=== PATIENT | female | born 1940 | race Caucasian/White ===

== ENCOUNTER 2016-12-01 15:47 | Emergency (ER) | payer MEDICARE, OTHER ==
[2016-12-01 16:44] LABS: HEMATOCRIT 34.2 % (36.0-47.0); HEMOGLOBIN 11.4 g/dL (12.0-15.5); MEAN CORPUSCULAR HEMOGLOBIN 28.8 pg (27.0-33.4); MEAN CORPUSCULAR HGB CONC 33.2 g/dL (32.0-36.0); MEAN CORPUSCULAR VOLUME 87 fl (80-97); RED BLOOD COUNT 3.95 10^6/uL (3.72-5.28); RED CELL DISTRIBUTION WIDTH 16.8 % (11.5-14.0)
[2016-12-01 16:52] LABS: ALANINE AMINOTRANSFERASE 35 U/L (9-52); ALBUMIN 3.9 g/dL (3.5-5.0); ALKALINE PHOSPHATASE 95 U/L (38-126); ANION GAP 11 (5-19); ASPARTATE AMINO TRANSFERASE 30 U/L (14-36); BILIRUBIN,TOTAL 0.5 mg/dL (0.2-1.3); BLOOD UREA NITROGEN 24 mg/dL (7-20); CALCIUM 9.7 mg/dL (8.4-10.2); CARBON DIOXIDE 27 mmol/L (22-30); CHLORIDE 104 mmol/L (98-107); CREATINE KINASE 67 U/L (30-135); CREATININE RESULT 0.94 mg/dL (0.52-1.25); GLUCOSE 136 mg/dL (75-110); LIPASE 82.4 U/L (23-300); POTASSIUM 3.3 mmol/L (3.6-5.0); SODIUM 141.6 mmol/L (137-145); TOTAL PROTEIN 6.2 g/dL (6.3-8.2)
[2016-12-01] MEDS ORDERED: MAG HYDROX/AL HYDROX/SIMETH SUSP 30 ML UDCUP PO ONE (17:02)
[2016-12-01] MEDS ORDERED: LIDOCAINE 2% VISCOUS SOLN 20 ML UDCUP PO ONE (17:02)
[2016-12-01] MEDS ORDERED: METOCLOPRAMIDE HCL ORAL SOLN 10 MG/10 ML UDCUP PO ONE (17:02)
[2016-12-01 17:03] LABS: CREATINE KINASE MB 0.35 ng/mL (<4.55)
[2016-12-01 17:05] LABS: TROPONIN I < 0.012 ng/mL
[2016-12-01 17:06] LABS: BASOPHILS % (MANUAL) 1 % (0-2); EOSINOPHILS % (MANUAL) 2 % (0-6); LYMPHOCYTES % (MANUAL) 26 % (13-45); TOTAL CELLS COUNTED 100
[2016-12-01 17:09] LABS: ANISOCYTOSIS SLIGHT; OVALOCYTES 1+; PLATELET CLUMPS PRESENT; POIKILOCYTOSIS SLIGHT; POLYCHROMASIA SLIGHT
[2016-12-01] MEDS ORDERED: POTASSIUM CHLORIDE 10 MEQ TABLET.SA PO ONE (17:16)
[2016-12-01 17:31] LABS: PARTIAL THROMBOPLASTIN TIME 32.2 SEC (23.5-35.8); PROTHROMBIN TIME 15.1 SEC (11.4-15.4)
[2016-12-01] MEDS ORDERED: ONDANSETRON HCL INJ/PF 4 MG/2 ML SDV IV ONE (17:39)
[2016-12-01] MEDS ORDERED: MORPHINE SULFATE 10 MG/ML INJ IV ONE (17:39)
--- NOTE | 2016-12-01 19:11 | ER Document Report ---
ED General - General Chief Complaint: Chest Pain Stated Complaint: CHEST PAIN TRAVEL OUTSIDE OF THE [place] IN LAST 30 DAYS: No - HPI Patient complains to provider of: chest pain Notes: Patient coming a sub-*chest pain radiating to the right side of the neck starting at approximately 1:00 to 130s afternoon. Patient states he is sleeping on the pain woke her up. Patient states on Monday prior to arrival was diagnosed by primary care physician with angina and was given nitroglycerin. Patient states she took nitroglycerin home with no relief of the pain EMS was called also give the patient nitroglycerin with no relief of her pain. Upon my evaluation patient is sitting comfortably patient still states that she is having pain 10 out of 10 although resting comfortably substernal radiating into the right side of her jaw. Patient had EKG performed showing no acute pathology. Patient states history of A. fib and blood clots in the past patient is currently on hypertensive medications along with aeliquis. Patient states she has been compliant with her medications. Patient states she she is scheduled for a stress test tomorrow. Patient states pain is different from her acid reflux in the past - Related Data Allergies/Adverse Reactions: amoxicillin [Amoxicillin] Allergy (Verified 08/23/12 10:45) Iodinated Contrast Media - Oral and [IV Dye, Iodine Containing] Allergy ( Verified 08/23/12 10:45) meperidine HCl [From Demerol] Allergy (Verified 08/23/12 10:45) Past Medical History - Social History Smoking Status: Unknown if Ever Smoked Family History: Reviewed & Not Pertinent - Past Medical History Cardiac Medical History: Reports: Hx Atrial Fibrillation - NOW CONTROLLED POST- ABLATION, Hx Hypercholesterolemia, Hx Hypertension GI Medical History: Reports: Hx Gastroesophageal Reflux Disease Past Surgical History: Reports: Hx Appendectomy, Hx Cholecystectomy, Hx Hysterectomy, Hx Tonsillectomy - Immunizations Hx Diphtheria, Pertussis, Tetanus Vaccination: Yes Review of Systems - Review of Systems Constitutional: No symptoms reported EENT: No symptoms reported Cardiovascular: Chest pain Respiratory: No symptoms reported Gastrointestinal: No symptoms reported Genitourinary: No symptoms reported Female Genitourinary: No symptoms reported Musculoskeletal: No symptoms reported Skin: No symptoms reported Hematologic/Lymphatic: No symptoms reported Neurological/Psychological: No symptoms reported -: Yes All other systems reviewed and negative Physical Exam - Vital signs Vitals: Temp Pulse Resp BP Pulse Ox 97.6 F 71 16 150/57 H 99 12/01/16 15:51 12/01/16 15:51 12/01/16 15:51 12/01/16 15:51 12/01/16 15:51 Interpretation: Normal - General General appearance: Appears well, Alert - HEENT Head: Normocephalic, Atraumatic Eyes: Normal Pupils: PERRL Neck: Normal. No: Carotid bruit - Respiratory Respiratory status: No respiratory distress Chest status: Nontender Breath sounds: Normal Chest palpation: Normal - Cardiovascular Rhythm: Regular Heart sounds: Normal auscultation Murmur: No - Abdominal Inspection: Normal Distension: No distension Bowel sounds: Normal Tenderness: Nontender Organomegaly: No organomegaly - Back Back: Normal, Nontender - Extremities General upper extremity: Normal inspection, Nontender, Normal color, Normal ROM , Normal temperature General lower extremity: Normal inspection, Nontender, Normal color, Normal ROM , Normal temperature, Normal weight bearing. No: Cecy's sign - Neurological Neuro grossly intact: Yes Cognition: Normal Orientation: AAOx4 [place] Coma Scale Eye Opening: Spontaneous [place] Coma Scale Verbal: Oriented [place] Coma Scale Motor: Obeys Commands [place] Coma Scale Total: 15 Speech: Normal Motor strength normal: LUE, RUE, LLE, RLE Sensory: Normal - Psychological Associated symptoms: Normal affect, Normal mood - Skin Skin Temperature: Warm Skin Moisture: Dry Skin Color: Normal Course - Re-evaluation Re-evalutation: 12/01/16 19:43 Patient's lab work showed negative troponin hypokalemia that was replaced orally. Patient's mag is normal. Discussed with hospitalist team patient's pain did continuously improved although no improvement with nitroglycerin or GI cocktail. Patient was evaluated by her hospitalist stating that she is now having 5 out of 10 pain. Patient was given morphine no relief hospitalist Dr. Tate is requesting the patient be transferred to her facility maintenance helper who is in [place] at [facility] Dr. Oscar. I discussed with Dr. Lindsey patient's presentation. Patient was accepted in transfer for further evaluation. Repeat EKG still shows no acute pathology. 12/01/16 19:45 At this time patient swallows signs are stable we'll hold off any further anticoagulation as patient is is on Eliquies 12/05/16 15:58 - Vital Signs Vital signs: Temp Pulse Resp BP Pulse Ox 97.6 F 71 11 L 137/56 H 96 12/01/16 15:51 12/01/16 15:51 12/01/16 19:01 12/01/16 19:01 12/01/16 19:01 - Laboratory Result Diagrams: 12/01/16 16:07 12/01/16 16:07 Laboratory results interpreted by me: 12/01/16 12/01/16 16:07 16:07 Hgb 11.4 L Hct 34.2 L RDW 16.8 H Potassium 3.3 L BUN 24 H Est GFR (Non-Af Amer) 58 L Glucose 136 H Total Protein 6.2 L Discharge - Discharge Clinical Impression: Chest pain Qualifiers: Chest pain type: unspecified Qualified Code(s): R07.9 - Chest pain, unspecified Condition: Good Disposition: TERTIARY Referrals: OMNTSERRAT PRESTON MD [Primary Care Provider] - Follow up as needed
[2016-12-01 19:42] VITALS: BP 137/56
--- NOTE | 2016-12-02 09:29 | EKG REPORT ---
SEVERITY:- ABNORMAL ECG - SINUS RHYTHM LVH WITH SECONDARY REPOLARIZATION ABNORMALITY NONSPECIFIC ST-T CHANGES- INFERIOR LEADS : Confirmed by: Tristian Watson MD 02-Dec-2016 09:29:01
--- NOTE | 2016-12-02 09:30 | EKG REPORT ---
SEVERITY:- ABNORMAL ECG - SINUS RHYTHM LVH WITH SECONDARY REPOLARIZATION ABNORMALITY : Confirmed by: Tristian Watson MD 02-Dec-2016 09:29:29
== END 2016-12-01 20:00 | disposition short-term general hospital (02) ==
LOC: ER 15:47
DX: R07.9 Chest pain, unspecified (principal); I10 Essential (primary) hypertension; E87.6 Hypokalemia; I48.91 Unspecified atrial fibrillation; Z79.01 Long term (current) use of anticoagulants; Z79.899 Other long term (current) drug therapy; Z87.19 Personal history of other diseases of the digestive system; Z88.0 Allergy status to penicillin; Z91.041 Radiographic dye allergy status; Z88.5 Allergy status to narcotic agent
CPT/HCPCS: 93005; 99285; 96374; 96375; 36415; 82553; 82550; 83690; 83735; 85025; 85610; 85730; 80053; 84484; 71010; 93010; J3490; A9270 ×2; J2270; J2405

== ENCOUNTER 2016-12-24 10:29 | Emergency (ER) | payer MEDICARE, OTHER ==
--- NOTE | 2016-12-24 10:39 | ER Document Report ---
ED Medical Screen (RME) - General Stated Complaint: DIFFICULTY BREATHING Mode of Arrival: Ambulatory Information source: Patient Notes: She presents to the emergency department with shortness of breath denies chest pain reports fever on and off. Reports temperature of 102 last night. Reports she just finished steroids and antibiotics on Monday. I have greeted and performed a rapid initial assessment of this patient. A comprehensive ED assessment and evaluation of the patient, analysis of test results and completion of the medical decision making process will be conducted by additional ED providers. TRAVEL OUTSIDE OF THE [place] IN LAST 30 DAYS: No - Related Data Allergies/Adverse Reactions: amoxicillin [Amoxicillin] Allergy (Verified 12/24/16 10:37) Iodinated Contrast Media - Oral and [IV Dye, Iodine Containing] Allergy ( Verified 12/24/16 10:37) meperidine HCl [From Demerol] Allergy (Verified 12/24/16 10:37) Past Medical History - Past Medical History Cardiac Medical History: Reports: Hx Atrial Fibrillation - NOW CONTROLLED POST- ABLATION, Hx Hypercholesterolemia, Hx Hypertension GI Medical History: Reports: Hx Gastroesophageal Reflux Disease Past Surgical History: Reports: Hx Appendectomy, Hx Cholecystectomy, Hx Hysterectomy, Hx Tonsillectomy - Immunizations Hx Diphtheria, Pertussis, Tetanus Vaccination: Yes
[2016-12-24 11:46] LABS: ABSOLUTE EOSINOPHILS # (AUTO) 0.1 10^3/uL (0.0-0.6); ABSOLUTE LYMPHOCYTES (AUTO) 0.5 10^3/uL (0.5-4.7); ABSOLUTE MONOCYTES (AUTO) 0.9 10^3/uL (0.1-1.4); BASOPHILS % (AUTO) 0.2 % (0-2); EOSINOPHILS % (AUTO) 0.8 % (0-6); HEMOGLOBIN 12.1 g/dL (12.0-15.5); HGB HCT DIFFERENCE 0.3; MEAN CORPUSCULAR HGB CONC 33.7 g/dL (32.0-36.0); MEAN CORPUSCULAR VOLUME 86 fl (80-97); MONOCYTES % (AUTO) 11.9 % (3-13); RED BLOOD COUNT 4.18 10^6/uL (3.72-5.28); RED CELL DISTRIBUTION WIDTH 17.6 % (11.5-14.0); SEGMENTED NEUTROPHILS % (AUTO) 80.1 % (42-78); WHITE BLOOD COUNT 7.5 10^3/uL (4.0-10.5)
[2016-12-24 12:05] LABS: ALANINE AMINOTRANSFERASE 32 U/L (9-52); ALBUMIN 3.6 g/dL (3.5-5.0); ALKALINE PHOSPHATASE 79 U/L (38-126); ANION GAP 13 (5-19); ASPARTATE AMINO TRANSFERASE 28 U/L (14-36); BILIRUBIN,DIRECT 0.2 mg/dL (0.0-0.4); BILIRUBIN,TOTAL 1.1 mg/dL (0.2-1.3); BLOOD UREA NITROGEN 25 mg/dL (7-20); CALCIUM 9.1 mg/dL (8.4-10.2); CARBON DIOXIDE 25 mmol/L (22-30); CHLORIDE 102 mmol/L (98-107); CREATININE RESULT 0.82 mg/dL (0.52-1.25); GLUCOSE 109 mg/dL (75-110); POTASSIUM 3.6 mmol/L (3.6-5.0); SODIUM 140.4 mmol/L (137-145); TOTAL PROTEIN 5.8 g/dL (6.3-8.2)
[2016-12-24 12:20] LABS: LIPASE 86.2 U/L (23-300); MAGNESIUM 1.6 mg/dL (1.6-2.3)
[2016-12-24] MEDS ORDERED: NORMAL SALINE 1000 ML 500 ML IV ONE (14:00)
--- NOTE | 2016-12-24 15:48 | ER Document Report ---
ED General - General Chief Complaint: Weakness Stated Complaint: DIFFICULTY BREATHING Mode of Arrival: Ambulatory TRAVEL OUTSIDE OF THE [place] IN LAST 30 DAYS: No - HPI Patient complains to provider of: generalized weakness difficulty in breathing Notes: Patient coming in for evaluation of cough the codeine breathing generalized weakness states is been ongoing for the last 1-2 months. Patient with a recent transfer to [facility] for cardiac workup with a negative stress test. Patient states continues to have a cough that is nonproductive patient states she did have a fever last night of 102. Patient states she did receive a flu shot this year other than that has been on multiple antibiotics for the last 2 months Z-Scott Levaquin and another antibiotic patient states has not helped with her symptoms patient also has completed steroids. Patient otherwise is in no obvious distress upon my evaluation. - Related Data Allergies/Adverse Reactions: amoxicillin [Amoxicillin] Allergy (Verified 12/24/16 10:37) Iodinated Contrast Media - Oral and [IV Dye, Iodine Containing] Allergy ( Verified 12/24/16 10:37) meperidine HCl [From Demerol] Allergy (Verified 12/24/16 10:37) Past Medical History - General Information source: Patient - Social History Smoking Status: Never Smoker Chew tobacco use (# tins/day): No Frequency of alcohol use: None Drug Abuse: None Family History: Reviewed & Not Pertinent - Past Medical History Cardiac Medical History: Reports: Hx Atrial Fibrillation - NOW CONTROLLED POST- ABLATION, Hx Hypercholesterolemia, Hx Hypertension Renal/ Medical History: Denies: Hx Peritoneal Dialysis GI Medical History: Reports: Hx Gastroesophageal Reflux Disease Past Surgical History: Reports: Hx Appendectomy, Hx Cholecystectomy, Hx Hysterectomy, Hx Orthopedic Surgery - Bilateral thumbs, Left elbow tendon repair , Hx Tonsillectomy - Immunizations Hx Diphtheria, Pertussis, Tetanus Vaccination: Yes Review of Systems - Review of Systems Constitutional: Weakness EENT: No symptoms reported Cardiovascular: No symptoms reported Respiratory: Cough Gastrointestinal: No symptoms reported Genitourinary: No symptoms reported Female Genitourinary: No symptoms reported Musculoskeletal: No symptoms reported Skin: No symptoms reported Hematologic/Lymphatic: No symptoms reported Neurological/Psychological: No symptoms reported -: Yes All other systems reviewed and negative Physical Exam - Vital signs Vitals: Temp Pulse Resp BP Pulse Ox 98.3 F 101 H 14 136/69 H 93 12/24/16 10:34 12/24/16 10:34 12/24/16 10:34 12/24/16 10:34 12/24/16 10:34 Interpretation: Normal - General General appearance: Appears well, Alert - HEENT Head: Normocephalic, Atraumatic Eyes: Normal Pupils: PERRL - Respiratory Respiratory status: No respiratory distress Chest status: Nontender Breath sounds: Normal Chest palpation: Normal - Cardiovascular Rhythm: Regular Heart sounds: Normal auscultation Murmur: No - Abdominal Inspection: Normal Distension: No distension Bowel sounds: Normal Tenderness: Nontender Organomegaly: No organomegaly - Back Back: Normal, Nontender - Extremities General upper extremity: Normal inspection, Nontender, Normal color, Normal ROM , Normal temperature General lower extremity: Normal inspection, Nontender, Normal color, Normal ROM , Normal temperature, Normal weight bearing - Patient able to ambulate approximately 6 steps of did have some weakness and difficulty ambulating.. No : Cecy's sign - Neurological Neuro grossly intact: Yes Cognition: Normal Orientation: AAOx4 [place] Coma Scale Eye Opening: Spontaneous [place] Coma Scale Verbal: Oriented [place] Coma Scale Motor: Obeys Commands [place] Coma Scale Total: 15 Speech: Normal Motor strength normal: LUE, RUE, LLE, RLE Sensory: Normal - Psychological Associated symptoms: Normal affect, Normal mood - Skin Skin Temperature: Warm Skin Moisture: Dry Skin Color: Normal Course - Re-evaluation Re-evalutation: 12/24/16 15:44 CT of the chest and lab work only shows some her cytopenia no other acute pathology. Currently waiting on urinalysis for source of fever. Patient more likely has the rehabilitation from her recent multiple illnesses and hospitalizations. At this time see no signs for admission will have patient discharged home with a walker and will consult physical therapy for home. Otherwise patient agrees this plan currently waiting on urinalysis. - Vital Signs Vital signs: Temp Pulse Resp BP Pulse Ox 98.3 F 81 13 141/64 H 92 12/24/16 10:34 12/24/16 12:00 12/24/16 12:19 12/24/16 12:19 12/24/16 12:19 - Laboratory Result Diagrams: 12/24/16 11:10 12/24/16 11:10 Laboratory results interpreted by me: 12/24/16 12/24/16 12/24/16 11:10 11:10 15:15 RDW 17.6 H Plt Count 91 L Seg Neutrophils % 80.1 H Lymphocytes % 7.0 L BUN 25 H Total Protein 5.8 L Urine Ascorbic Acid 40 H Discharge - Discharge Clinical Impression: Generalized weakness, Cough Condition: Good Disposition: HOME, SELF-CARE Instructions: Weakness ([facility]), Cough Suppressant & Expectorant Medications Additional Instructions: Your lab work and CT scans today showed no critical etiology. 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 I do believe your generalized weakness is due to your he will patient from multiple recent illnesses and hospitalizations. The cough that you experiencing may continue for some time. Please use the Tessalon Perles for possible relief he may also use honey at home. Prescriptions: Benzonatate [Tessalon Perles 100 mg Capsule] 100 mg PO ASDIR PRN #40 capsule PRN Reason: Walker [Ultra-Light Rollator] 1 each MC DAILY #1 each Referrals: MONTSERRAT PRESTON MD [Primary Care Provider] - Follow up in 3-5 days
[2016-12-24 16:12] LABS: APPEARANCE,URINE SLIGHTLY-CLOUDY; BILIRUBIN,URINE NEGATIVE (NEGATIVE); GLUCOSE, URINE NEGATIVE (NEGATIVE); KETONES,URINE NEGATIVE (NEGATIVE); LEUKOCYTE ESTERASE,URINE NEGATIVE (NEGATIVE); NITRITE,URINE NEGATIVE (NEGATIVE); PROTEIN,URINE NEGATIVE (NEGATIVE); UROBILINOGEN,URINE NEGATIVE mg/dL (<2.0)
[2016-12-24 16:28] VITALS: BP 130/52
--- NOTE | 2016-12-24 22:20 | EKG REPORT ---
SEVERITY:- ABNORMAL ECG - SINUS RHYTHM NONSPECIFIC REPOL ABNORMALITY, DIFFUSE LEADS : Confirmed by: Tristian Watson MD 24-Dec-2016 17:38:17
== END 2016-12-24 16:56 | disposition home or self-care (01) ==
LOC: ER 10:29
DX: R53.1 Weakness (principal); R05 Cough; R06.02 Shortness of breath; R50.9 Fever, unspecified
CPT/HCPCS: 93005; 99285; 96360; 36415; 83690; 83735; 85025; 80053; 81001; 83605; 87804; 71020; 71250; 93010; J7030

== ENCOUNTER → 2017-06-09 | Outpatient (CLI) | payer MEDICARE, OTHER ==
--- NOTE | 2017-06-09 11:06 | RADIOLOGY REPORT (SQ) ---
EXAM DESCRIPTION: VENOUS UNILATERAL LOWER COMPLETED DATE/TIME: 06/09/2017 10:49 am REASON FOR STUDY: EDEMA R60.9 EDEMA, UNSPECIFIED COMPARISON: None. TECHNIQUE: Dynamic and static turner scale and color images acquired of the left leg venous system. Se lected spectral images acquired with additional compression and augmentation maneuvers. The contralat eral common femoral vein and saphenofemoral junction were also imaged. Images stored on PACS. LIMITATIONS: None. FINDINGS: COMMON FEMORAL: Normal phasicity, compression and augmentation. No visualized echogenic ma terial on turner scale. No defects on color images. FEMORAL: Normal flow, normal compression and augmentation. There is some thickening the wall seconda ry prior DVT. POPLITEAL: Normal compression, augmentation. No visualized echogenic material on turner scale. No defec ts on color images. CALF VESSELS: Normal compression, augmentation. No visualized echogenic material on turner scale. No de fects on color images. GSV and SSV: Normal compression, augmentation. No visualized echogenic material on turner scale. No def ects on color images. ANY DEEP VENOUS INSUFFICIENCY: Not evaluated. ANY EVIDENCE OF POPLITEAL CYST: No. OTHER: No other significant finding. CONTRALATERAL COMMON FEMORAL VEIN AND SAPHENOFEMORAL JUNCTION: Normal phasicity, compression and augmentation. No visualized echogenic material on turner scale. No de fects on color images. IMPRESSION: 1. No evidence of acute DVT or over SVT in the left leg. 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 TECHNICAL DOCUMENTATION: JOB ID: [id number] [employer]- All Rights Reserved
== END ==
LOC: SP 09:47
PROVIDERS: ATTEND Internal Medicine
DX: R60.9 Edema, unspecified (principal)
CPT/HCPCS: 93971

== ENCOUNTER → 2019-05-24 | Outpatient (CLI) | payer MEDICARE, OTHER ==
[2019-05-24 11:59] LABS: ALBUMIN 3.9 g/dL (3.5-5.0); ALKALINE PHOSPHATASE 77 U/L (38-126); ANION GAP 10 (5-19); ASPARTATE AMINO TRANSFERASE 36 U/L (14-36); BILIRUBIN,DIRECT 0.2 mg/dL (0.0-0.4); BILIRUBIN,TOTAL 0.9 mg/dL (0.2-1.3); BLOOD UREA NITROGEN 34 mg/dL (7-20); CALCIUM 9.5 mg/dL (8.4-10.2); CARBON DIOXIDE 26 mmol/L (22-30); CHLORIDE 103 mmol/L (98-107); GLUCOSE 185 mg/dL (75-110); POTASSIUM 3.9 mmol/L (3.6-5.0); TOTAL PROTEIN 5.9 g/dL (6.3-8.2)
== END ==
LOC: OD 10:22
PROVIDERS: ATTEND Orthopaedic Surgery
DX: I10 Essential (primary) hypertension (principal)
CPT/HCPCS: 36415; 80053

== ENCOUNTER 2020-05-25 06:31 | Emergency (ER) | payer MEDICARE, OTHER ==
[2020-05-25] MEDS ORDERED: NORMAL SALINE 500 ML IV ONE (07:52)
--- NOTE | 2020-05-25 08:20 | RADIOLOGY REPORT (SQ) ---
EXAM DESCRIPTION: CHEST SINGLE VIEW IMAGES COMPLETED DATE/TIME: 05/25/2020 8:00 am REASON FOR STUDY: TIA COMPARISON: 08/05/2017 EXAM PARAMETERS: NUMBER OF VIEWS: One view. TECHNIQUE: Single frontal radiographic view of the chest acquired. RADIATION DOSE: NA LIMITATIONS: None. FINDINGS: LUNGS AND PLEURA: No opacities, masses or pneumothorax. No pleural effusion. MEDIASTINUM AND HILAR STRUCTURES: No masses. Contour normal. HEART AND VASCULAR STRUCTURES: Normal heart size. Vascular calcifications. BONES: No acute findings. HARDWARE: None in the chest. OTHER: No other significant finding. IMPRESSION: No evidence of acute cardiopulmonary process. TECHNICAL DOCUMENTATION: JOB ID: [id number] 2010 [employer]- All Rights Reserved Reading location - IP/workstation name: [email or web address]
--- NOTE | 2020-05-25 08:23 | RADIOLOGY REPORT (SQ) ---
EXAM DESCRIPTION: CT HEAD WITHOUT IMAGES COMPLETED DATE/TIME: 05/25/2020 7:47 am REASON FOR STUDY: aphasia/right side weakness COMPARISON: None. TECHNIQUE: Axial images acquired through the brain without intravenous contrast. Images reviewed wi th bone, brain and subdural windows. Additional sagittal and coronal reconstructions were generated. Images stored on PACS. All CT scanners at this facility use dose modulation, iterative reconstruction, and/or weight based d osing when appropriate to reduce radiation dose to as low as reasonably achievable (ALARA). [facility]: Dose Right [facility]: CareDose [facility]: Dose Right [facility]: Teradose 4D [facility]: [employer] RADIATION DOSE: CT Rad equipment meets quality standard of care and radiation dose reduction techniq ues were employed. CTDIvol: 53.2 mGy. DLP: 1044 mGy-cm. mGy. LIMITATIONS: None. FINDINGS: VENTRICLES: Mild age-appropriate prominence. CEREBRUM: No masses. No hemorrhage. No midline shift. Areas of low density in the white matter mos t likely due to chronic micro-vascular ischemic change. No evidence for acute large vascular territo ry infarction. CEREBELLUM: No masses. No hemorrhage. No alteration of density. No evidence for acute infarction. EXTRAAXIAL SPACES: Mild age-related involutional change. No fluid collections. No masses. ORBITS AND GLOBE: No intra- or extraconal masses. Normal contour of globe without masses. Prior cat aract surgery. CALVARIUM: No fracture. PARANASAL SINUSES: Mild mucosal thickening within the maxillary sinuses and ethmoid air cells. Mild additional left sphenoid sinus mucosal thickening. Mastoid air cells are clear. SOFT TISSUES: No mass or hematoma. OTHER: No other significant finding. IMPRESSION: NO EVIDENCE OF INTRACRANIAL HEMORRHAGE OR LARGE VASCULAR TERRITORY INFARCT. IF HIGH CLI NICAL CONCERN FOR ACUTE ISCHEMIC EVENT, CONSIDER MRI. MILD NONSPECIFIC WHITE MATTER CHANGES, LIKELY SEQUELAE OF MICROANGIOPATHIC DISEASE. EVIDENCE OF ACUTE STROKE: NO. TECHNICAL DOCUMENTATION: JOB ID: [id number] Quality ID # [id number]: Final reports with documentation of one or more dose reduction techniques (e.g., Au tomated exposure control, adjustment of the mA and/or kV according to patient size, use of iterative reconstruction technique) 2010 [employer]- All Rights Reserved Reading location - IP/workstation name: [email or web address]
[2020-05-25 08:25] LABS: INTERNATIONAL RATION (INR) 1.09; PROTHROMBIN TIME 14.3 SEC (11.4-15.4)
[2020-05-25 08:26] LABS: PARTIAL THROMBOPLASTIN TIME 29.7 SEC (23.5-35.8)
[2020-05-25 08:42] LABS: ABSOLUTE EOSINOPHILS # (AUTO) 0.1 10^3/uL (0.0-0.6); ABSOLUTE MONOCYTES (AUTO) 0.3 10^3/uL (0.1-1.4); ABSOLUTE NEUT (AUTO) 3.9 10^3/uL (1.7-8.2); BASOPHILS % (AUTO) 0.9 % (0-2); EOSINOPHILS % (AUTO) 1.3 % (0-6); HEMATOCRIT 35.2 % (36.0-47.0); HEMOGLOBIN 12.3 g/dL (12.0-15.5); LYMPHOCYTES % (AUTO) 18.4 % (13-45); MEAN CORPUSCULAR HEMOGLOBIN 32.4 pg (27.0-33.4); MEAN CORPUSCULAR HGB CONC 34.9 g/dL (32.0-36.0); MEAN CORPUSCULAR VOLUME 93 fl (80-97); MONOCYTES % (AUTO) 6.5 % (3-13); PLATELET COUNT 160 10^3/uL (150-450); SEGMENTED NEUTROPHILS % (AUTO) 72.9 % (42-78); TOTAL CELLS COUNTED % (AUTO) 100 %; WHITE BLOOD COUNT 5.3 10^3/uL (4.0-10.5)
--- NOTE | 2020-05-25 08:56 | EKG REPORT ---
SEVERITY:- ABNORMAL ECG - SINUS RHYTHM LEFT VENTRICULAR HYPERTROPHY : Confirmed by: Britni Samuel MD 25-May-2020 08:55:41
[2020-05-25 09:05] LABS: ALBUMIN 4.1 g/dL (3.5-5.0); ALKALINE PHOSPHATASE 73 U/L (38-126); ANION GAP 7 (5-19); ASPARTATE AMINO TRANSFERASE 42 U/L (14-36); BILIRUBIN,DIRECT 0.1 mg/dL (0.0-0.4); BILIRUBIN,TOTAL 0.8 mg/dL (0.2-1.3); BLOOD UREA NITROGEN 27 mg/dL (7-20); CALCIUM 9.6 mg/dL (8.4-10.2); CARBON DIOXIDE 26 mmol/L (22-30); CHLORIDE 106 mmol/L (98-107); CREATINE KINASE 48 U/L (30-135); GLUCOSE 101 mg/dL (75-110); POTASSIUM 4.1 mmol/L (3.6-5.0); TOTAL PROTEIN 6.3 g/dL (6.3-8.2)
--- NOTE | 2020-05-25 10:20 | RADIOLOGY REPORT (SQ) ---
EXAM DESCRIPTION: MRI HEAD WITHOUT IMAGES COMPLETED DATE/TIME: 05/25/2020 10:07 am REASON FOR STUDY: right side weakness/expressive aphasia LIMITATIONS: Mild motion artifact. FINDINGS: ANATOMY: No anomalies. Normal vascular flow voids. Pituitary fossa normal. CSF SPACES: Normal in size and contour. No hemorrhage. CEREBRUM: A few high-signal intensity lesions scattered throughout the white matter on FLAIR imaging with distribution suggesting chronic micro-vascular ischemic change. Sulci and gyri normal in size a nd contour. No evidence of space-occupying hemorrhage, mass or extraaxial fluid collection. Punctat e focus of susceptibility artifact within the left occipital lobe, likely hemosiderin staining. POSTERIOR FOSSA: No signal alteration. No hemorrhage. No edema, masses or mass effect. Internal vladimir tory canals, cerebello-pontine angles, mastoids normal. DIFFUSION: Negative for acute or sub-acute infarction. ORBITS: No masses. Globes normal. Prior cataract surgery. PARANASAL SINUSES: Mucosal thickening within the bilateral maxillary sinuses and ethmoid air cells. OTHER: No other significant finding. IMPRESSION: 1. Mild chronic changes of parenchymal volume and nonspecific white matter changes, lik josephine sequelae of microangiopathic disease. 2. No evidence of acute infarct or other acute intracranial abnormality. EVIDENCE OF ACUTE STROKE: NO. TECHNICAL DOCUMENTATION: JOB ID: [id number] 2010 [employer]- All Rights Reserved COMPARISON: None. 05/25/2020 CT TECHNIQUE: Multiplanar imaging includes non-contrasted T1, T2, FLAIR, and Diffusion with ADC map seq uences. Images stored on PACS. Reading location - IP/workstation name: [email or web address]
--- NOTE | 2020-05-25 10:23 | RADIOLOGY REPORT (SQ) ---
EXAM DESCRIPTION: MRA NECK WITHOUT IMAGES COMPLETED DATE/TIME: 05/25/2020 10:07 am REASON FOR STUDY: right side weakness/expressive aphasia COMPARISON: None. TECHNIQUE: Axial 2-D volume acquisition imaging through the extracranial carotid and vertebral arter ies with reformatting using 3-D MIPS. LIMITATIONS: Motion artifact FINDINGS: RIGHT CAROTID ARTERY: No stenosis or occlusive changes. Small segment retropharyngeal cou rse. Limited visualization of the origin. LEFT CAROTID ARTERY: No stenosis or occlusive changes. Small segment retropharyngeal course. Limite d visualization of the origin. VERTEBRAL ARTERY: Diminutive right vertebral artery, likely congenital. The extracranial portions of the vertebral basilar system are otherwise preserved without stenosis. No aneurysmal dilatation or d issection is seen. OTHER: No other significant finding. IMPRESSION: Mild motion degraded exam. No evidence of high-grade stenosis, aneurysm or large vessel occlusion. COMMENT: Quality ID #[id number]: Measurements of distal internal carotid diameter were used as the denomin ator for stenosis measurement. TECHNICAL DOCUMENTATION: JOB ID: [id number] 2010 [employer]- All Rights Reserved Reading location - IP/workstation name: [email or web address]
--- NOTE | 2020-05-25 10:26 | RADIOLOGY REPORT (SQ) ---
EXAM DESCRIPTION: MRA HEAD WITHOUT IMAGES COMPLETED DATE/TIME: 05/25/2020 10:07 am REASON FOR STUDY: right side weakness/expressive aphasia COMPARISON: Same day MRI TECHNIQUE: Axial 3-D [id number] acquisition imaging performed through the brain in the area of t he [place]. Images reformatted using 3-D MIPS. LIMITATIONS: None. FINDINGS: SOURCE IMAGES: No unexpected findings on source images. No large masses. 3-D MIP: No aneurysm. No occlusions. No significant stenosis. OTHER: No other significant finding. IMPRESSION: Unremarkable MRA of the [place]. No evidence of aneurysm, large vessel occlusi on or high-grade stenosis. TECHNICAL DOCUMENTATION: JOB ID: [id number] 2010 [employer]- All Rights Reserved Reading location - IP/workstation name: [email or web address]
[2020-05-25 10:35] LABS: APPEARANCE,URINE CLEAR; BILIRUBIN,URINE NEGATIVE (NEGATIVE); COLOR,URINE STRAW; GLUCOSE, URINE NEGATIVE (NEGATIVE); KETONES,URINE NEGATIVE (NEGATIVE); LEUKOCYTE ESTERASE,URINE NEGATIVE (NEGATIVE); NITRITE,URINE NEGATIVE (NEGATIVE); PROTEIN,URINE NEGATIVE (NEGATIVE); URINE SPECIFIC GRAVITY 1.006; UROBILINOGEN,URINE NEGATIVE mg/dL (<2.0)
[2020-05-25] MEDS ORDERED: ASPIRIN 81 MG TABLET, CHEWABLE PO ONE (11:32)
--- NOTE | 2020-05-25 13:24 | ER Document Report ---
Entered by JONNY SIMMONS SCRIBE 05/25/20 0833 Acting as scribe for:MARQUIS MENJIVAR MD ED General - General Chief Complaint: Doesn't Feel Right Stated Complaint: DIFFICULT SPEECH Time Seen by Provider: 05/25/20 07:05 Primary Care Provider: MONTSERRAT PRESTON MD [Primary Care Provider] - Follow up as needed Information source: Patient Notes: This 79 year old female patient presents to the emergency department today with complaints of intermittent episodes of expressive aphasia for the past x2 weeks. Patient states she woke this morning around 3 am and it was around 5 am when she felt like she did not feel right when making coffee. Patient states she had dif ficulty walking and was not able to properly speak what she was thinking. Patient reports history of a TIA in 2014 and patient states she was left with RLE weakness. Patient states she had a head CT done x4 weeks ago in [place] and a EEG scheduled for tomorrow, but has been cancelled. Patient reports a sinus headache last night and was relieved by Tylenol. Denies chest pain. TRAVEL OUTSIDE OF THE [place] IN LAST 30 DAYS: No - Related Data Allergies/Adverse Reactions: amoxicillin [Amoxicillin] Allergy (Verified 08/05/17 10:21) diltiazem Allergy (Verified 08/05/17 10:30) Iodinated Contrast Media [IV Dye, Iodine Containing] Allergy (Verified 08/05/17 10:21) meperidine HCl [From Demerol] Allergy (Verified 08/05/17 10:21) Past Medical History - General Information source: Patient - Social History Smoking Status: Never Smoker Cigarette use (# per day): No Lives with: Spouse/Significant other Family History: Reviewed & Not Pertinent Patient has homicidal ideation: No - Past Medical History Cardiac Medical History: Reports: Hx Atrial Fibrillation - NOW CONTROLLED POST- ABLATION x2, Hx Hypercholesterolemia, Hx Hypertension Neurological Medical History: Reports: Other - TIA 2014 GI Medical History: Reports: Hx Gastroesophageal Reflux Disease Musculoskeletal Medical History: Reports Hx Arthritis Past Surgical History: Reports: Hx Appendectomy, Hx Cholecystectomy, Hx Hysterectomy, Hx Orthopedic Surgery - Bilateral thumbs, Left elbow tendon repair, Hx Tonsillectomy - Immunizations Hx Diphtheria, Pertussis, Tetanus Vaccination: Yes Review of Systems - Review of Systems Constitutional: No symptoms reported EENT: See HPI Cardiovascular: See HPI. denies: Chest pain Respiratory: No symptoms reported Gastrointestinal: No symptoms reported Genitourinary: No symptoms reported Female Genitourinary: No symptoms reported Musculoskeletal: No symptoms reported Skin: No symptoms reported Hematologic/Lymphatic: No symptoms reported Neurological/Psychological: See HPI, Headaches, Other - Difficulty with speech and walking -: Yes All other systems reviewed and negative Physical Exam - Vital signs Vitals: Temp Pulse Resp BP Pulse Ox 98.2 F 60 14 190/41 H 95 05/25/20 06:54 05/25/20 06:54 05/25/20 06:54 05/25/20 06:54 05/25/20 06:54 - General General appearance: Appears well, Alert - HEENT Head: Normocephalic, Atraumatic Eyes: Normal Pupils: PERRL Ears: Normal External canal: Normal Tympanic membrane: Normal - Respiratory Respiratory status: No respiratory distress Chest status: Nontender Breath sounds: Normal Chest palpation: Normal - Cardiovascular Rhythm: Regular Heart sounds: Normal auscultation Murmur: No - Abdominal Inspection: Normal Distension: No distension Bowel sounds: Normal Tenderness: Nontender - Extremities General upper extremity: Normal inspection, Normal ROM. No: Edema General lower extremity: Normal inspection, Normal ROM. No: Edema - Neurological Neuro grossly intact: Yes Cognition: Normal Orientation: AAOx4 Speech: Normal Cranial nerves: Normal Sensory: Normal Notes: Able to smile and speech is normal during exam. Sensation is intact. Gag reflex is present. Cerebellar coordination is normal in all 4 extremities with [id number] and [id number] tests. Strength in bilateral lower extremities is normal with straight leg raise. No pronator drift. - Psychological Associated symptoms: Normal affect, Normal mood - Skin Skin Temperature: Warm Skin Moisture: Dry Skin Color: Normal Course - Re-evaluation Re-evalutation: 05/25/20 13:19 Patient resting comfortably not showing any signs of distress at this time. No new neuro findings patient is ambulatory in the department alert speech is clear not showing any signs of any deterioration or recurrence of a aphasia or any neuro motor deficits. Case was discussed with Dr. Shaggy Garcia primary care doctor who states that he will follow-up with patient and make sure she has follow-up in with neurology. - Vital Signs Vital signs: Temp Pulse Resp BP Pulse Ox 98.3 F 60 12 176/54 H 96 05/25/20 11:30 05/25/20 06:54 05/25/20 12:01 05/25/20 12:01 05/25/20 12:01 05/25/20 13:19 Vital signs stable. Systolic hypertension noted at 176 systolic. - Laboratory Result Diagrams: 05/25/20 08:13 05/25/20 08:13 Laboratory results interpreted by me: 05/25/20 05/25/20 08:13 08:13 Hct 35.2 L RDW 17.0 H BUN 27 H Est GFR (MDRD) Non-Af 59 L AST 42 H Laboratories essentially within normal limits troponin x2 has been normal at 0.012. - Diagnostic Test Radiology reviewed: Image reviewed, Reports reviewed Radiology results interpreted by me: 05/25/20 13:20 Chest x-ray shows no acute process CT scan of the head shows no evidence for any new stroke MRI of the brain shows no evidence for stroke. MRA of neck shows no stenoses in the large vessels or any aneurysms. MRA of brain shows kasaan of Bhagat without any stenosis or aneurysms noted. - EKG Interpretation by Me Additional EKG results interpreted by me: 05/25/20 13:21 Twelve-lead EKG shows normal sinus rhythm rate of 60 with left ventricular hypertrophy noted no other acute ST-T wave changes no STEMI. Discharge - Discharge Clinical Impression: TIA (transient ischemic attack) Condition: Stable Disposition: HOME, SELF-CARE Additional Instructions: Transient Ischemic Attack You have been diagnosed as having a transient ischemic attack (TIA). This is caused when an artery to the brain has been temporarily blocked. It can result in visual changes, difficulty with speech, and weakness or numbness -- usually limited to one side of the body. TIA symptoms usually resolve within an hour, but a TIA is serious, as it may be a warning sign of an impending stroke. To prevent further episodes, you may be placed on medication to reduce the possibility that your platelets will aggregate and form blood clots in the arteries that supply the brain. Usually, this includes aspirin and sometimes other platelet inhibitors. Further evaluation is often necessary to make an exact diagnosis as to where these blood clots are originating, and if anything else needs to be done to correct the problem. Call the physician or go to the emergency room if episodes occur with increasing frequency. If symptoms occur that don't go away within a few minutes, call 911. Please follow-up by directions of your primary care doctor Dr. Catherine Bryant. There is a plan to get you follow-up with your neurologist. Continue taking your usual medications unless he is instructed you differently. Referrals: MONTSERRAT PRESTON MD [Primary Care Provider] - Follow up as needed I personally performed the services described in the documentation, reviewed and edited the documentation which was dictated to the scribe in my presence, and it accurately records my words and actions.
[2020-05-25 13:46] VITALS: BP 173/59
== END 2020-05-25 13:40 | disposition home or self-care (01) ==
LOC: ER 06:31
DX: G45.9 Transient cerebral ischemic attack, unspecified (principal); R47.01 Aphasia; R26.2 Difficulty in walking, not elsewhere classified; R51 Headache; I11.9 Hypertensive heart disease without heart failure; Z88.0 Allergy status to penicillin; Z88.8 Allergy status to other drugs, medicaments and biological substances; Z91.041 Radiographic dye allergy status; Z88.6 Allergy status to analgesic agent; Z88.5 Allergy status to narcotic agent
CPT/HCPCS: 93005; 99285; 96360; 96361; 36415; 82550; 85025; 85610; 85730; 80053; 81001; 84484; 70551; 70547; 70544; 71045; 70450; 93010; A9270; J7040

== ENCOUNTER 2020-09-13 12:32 | Inpatient (IN) | payer MEDICARE, OTHER ==
--- NOTE | 2020-09-13 13:23 | RADIOLOGY REPORT (SQ) ---
EXAM DESCRIPTION: CHEST SINGLE VIEW IMAGES COMPLETED DATE/TIME: 09/13/2020 1:12 pm REASON FOR STUDY: bed 36 sepsis protocol COMPARISON: 05/25/2020. FINDINGS: One view chest AP portable upright. Lungs are hyperinflated. Patchy peripheral infiltrates particularly in the left lung. Not seen on p rior imaging. This could reflect atypical infection including COVID19 pneumonia. No pneumothorax. TECHNICAL DOCUMENTATION: JOB ID: [id number] Reading location - IP/workstation name: [email or web address]
[2020-09-13] MEDS ORDERED: PANTOPRAZOLE SODIUM 40 MG VIAL IV ONE (13:24)
[2020-09-13 13:34] LABS: VENOUS BLOOD BASE EXCESS -4.2 mmol/L; VENOUS BLOOD HCO3 20.5 mmol/L (20-32); VENOUS BLOOD PCO2 36.6 mmHg (35-63); VENOUS BLOOD PH 7.37 (7.30-7.42)
[2020-09-13] MEDS ORDERED: DEXTROSE 50%-WATER 25 GM/50 ML DISP.SYRIN IV ONE (13:34)
[2020-09-13 13:37] LABS: HEMATOCRIT 35.5 % (36.0-47.0); HEMOGLOBIN 11.9 g/dL (12.0-15.5); MEAN CORPUSCULAR HEMOGLOBIN 29.6 pg (27.0-33.4); MEAN CORPUSCULAR HGB CONC 33.5 g/dL (32.0-36.0); MEAN CORPUSCULAR VOLUME 89 fl (80-97); PLATELET COUNT 170 10^3/uL (150-450); RED BLOOD COUNT 4.01 10^6/uL (3.72-5.28); RED CELL DISTRIBUTION WIDTH 16.1 % (11.5-14.0); WHITE BLOOD COUNT 2.6 10^3/uL (4.0-10.5)
[2020-09-13] MEDS ORDERED: NORMAL SALINE 1000 ML 1,000 ML IV ONE (13:38)
[2020-09-13 13:40] LABS: INTERNATIONAL RATION (INR) 1.01; PROTHROMBIN TIME 13.5 SEC (11.4-15.4)
[2020-09-13 13:56] LABS: ALBUMIN 3.2 g/dL (3.5-5.0); ALKALINE PHOSPHATASE 75 U/L (38-126); ANION GAP 12 (5-19); ASPARTATE AMINO TRANSFERASE 51 U/L (14-36); BILIRUBIN,DIRECT 0.2 mg/dL (0.0-0.4); BILIRUBIN,TOTAL 0.7 mg/dL (0.2-1.3); BLOOD UREA NITROGEN 26 mg/dL (7-20); CALCIUM 8.9 mg/dL (8.4-10.2); CARBON DIOXIDE 19 mmol/L (22-30); CHLORIDE 103 mmol/L (98-107); GLUCOSE 71 mg/dL (75-110); POTASSIUM 3.9 mmol/L (3.6-5.0); TOTAL PROTEIN 5.5 g/dL (6.3-8.2)
[2020-09-13 14:02] LABS: ABSOLUTE LYMPHOCYTES# (MANUAL) 0.5 10^3/uL (0.5-4.7); ABSOLUTE MONOCYTES # (MANUAL) 0.1 10^3/uL (0.1-1.4); BAND NEUTROPHILS % (MANUAL) 4 % (3-5); BASOPHILS % (MANUAL) 0 % (0-2); EOSINOPHILS % (MANUAL) 0 % (0-6); LYMPHOCYTES % (MANUAL) 18 % (13-45); METAMYELOCYTES % (MANUAL) 1 % (0-1); MONOCYTES % (MANUAL) 5 % (3-13); SEGMENTED NEUTROPHILS % (MAN) 72 % (42-78); TOTAL CELLS COUNTED 100
[2020-09-13 14:03] LABS: ANISOCYTOSIS 1+; OVALOCYTES 1+; PLATELET COMMENT ADEQUATE
[2020-09-13] MEDS ORDERED: ACETAMINOPHEN 1,000 MG/100 ML RTUPB IV ONE (14:26)
[2020-09-13] MEDS ORDERED: FAMOTIDINE INJ/PF 20 MG/2 ML SDV IV ONE (14:30)
[2020-09-13] MEDS ORDERED: METHYLPREDNISOLONE INJ 125 MG/2 ML SDV IV ONE (14:30)
[2020-09-13] MEDS ORDERED: DIPHENHYDRAMINE HCL 50 MG/ML VIAL IV ONE (14:30)
[2020-09-13] MEDS ORDERED: AZITHROMYCIN INJ 500 MG VIAL IV ONE (15:02)
--- NOTE | 2020-09-13 15:03 | ER Document Report ---
Entered by JOSE ORELLANA SCRIBE 09/13/20 1311 Acting as scribe for:MARQUIS MENJIVAR MD ED General - General Stated Complaint: SHORTNESS OF BREATH Primary Care Provider: MONTSERRAT PRESTON MD [Primary Care Provider] - Follow up as needed Mode of Arrival: Medic Information source: Patient Notes: This 80 year old female patient with a history of HTN, HLD, A fib s/p ablation x2 on Eliquis, GERD, and diverticulitis who tested positive for COVID x2 weeks ago presents to the ED today via EMS with complaints of generalized weakness with nausea, vomiting, and diarrhea for the past x8 days. Patient states that she has not been able to keep anything down, including her medications. She no naa clear emesis, LLQ abdominal pain, and "almost" black appearing liquid stool; denies coffee ground emesis. She also notes shortness of breath with exertion, cough, and fever. EMS states that the patient had O2 sats of 90% on room air when she ambulated, 96% on 2L O2 via NC. Patient discloses that her x2 weeks ago due to COVID. TRAVEL OUTSIDE OF THE [place] IN LAST 30 DAYS: No - Related Data Allergies/Adverse Reactions: amoxicillin [Amoxicillin] Allergy (Verified 09/13/20 13:51) diltiazem Allergy (Verified 09/13/20 13:51) Iodinated Contrast Media [IV Dye, Iodine Containing] Allergy (Verified 09/13/20 13:51) meperidine HCl [From Demerol] Allergy (Verified 09/13/20 13:51) Past Medical History - General Information source: Patient, [facility] Records - Social History Smoking Status: Unknown if Ever Smoked Smoking Education Provided: No Frequency of alcohol use: None Drug Abuse: None Lives with: Alone Family History: Reviewed & Not Pertinent Patient has suicidal ideation: No Patient has homicidal ideation: No - Past Medical History Cardiac Medical History: Reports: Hx Atrial Fibrillation - NOW CONTROLLED POST- ABLATION x2, Hx Hypercholesterolemia, Hx Hypertension GI Medical History: Reports: Hx Diverticulitis, Hx Gastroesophageal Reflux Disease Musculoskeletal Medical History: Reports Hx Arthritis Past Surgical History: Reports: Hx Appendectomy, Hx Cholecystectomy, Hx Hysterectomy, Hx Orthopedic Surgery - Bilateral thumbs, Left elbow tendon repair, Hx Tonsillectomy - Immunizations Hx Diphtheria, Pertussis, Tetanus Vaccination: Yes Review of Systems - Review of Systems Constitutional: See HPI, Fever, Weakness, Recent illness EENT: No symptoms reported Cardiovascular: No symptoms reported Respiratory: See HPI, Cough, Short of breath Gastrointestinal: See HPI, Abdominal pain, Diarrhea, Nausea, Vomiting, Black stools Genitourinary: No symptoms reported Female Genitourinary: No symptoms reported Musculoskeletal: No symptoms reported Skin: No symptoms reported Hematologic/Lymphatic: No symptoms reported Neurological/Psychological: No symptoms reported -: Yes All other systems reviewed and negative Physical Exam - Vital signs Vitals: Temp Pulse Ox 100 F 94 09/13/20 12:34 09/13/20 12:34 - General General appearance: Alert, Other - Appears 4+ ill - HEENT Head: Normocephalic, Atraumatic Eyes: Normal Pupils: PERRL Neck: Normal, Supple - Respiratory Respiratory status: Tachypnea, Other - Hypoxic requiring O2 via NC Chest status: Nontender Breath sounds: Decreased air movement - Diminished breath sounds in the bases Chest palpation: Normal - Cardiovascular Rhythm: Irregularly irregular, Tachycardia Heart sounds: Normal auscultation Murmur: No Friction rub: No Gallop: None auscultated - Abdominal Inspection: Normal Distension: No distension Bowel sounds: Normal Tenderness: Tender - LLQ tenderness to palpation. No: Rebound Organomegaly: No organomegaly - Rectal Stool: Heme positive - No active bleeding., See lab result, Other - Brown stool Notes: Female corporate director present - Back Back: Normal, Nontender - Extremities General upper extremity: Normal inspection General lower extremity: Normal inspection. No: Edema - Neurological Neuro grossly intact: Yes Orientation: AAOx4 Maegan Coma Scale Eye Opening: Spontaneous Maegan Coma Scale Verbal: Oriented Maegan Coma Scale Motor: Obeys Commands Maegan Coma Scale Total: 15 - Psychological Associated symptoms: Normal affect, Normal mood - Skin Skin Temperature: Warm Skin Moisture: Dry Skin Color: Pale Course - Re-evaluation Re-evalutation: 09/13/20 16:14 Patient while at rest on nasal cannula 4 L nasal O2 maintains a normal saturation. Patient has chronic A. fib with a ventricular response of 105. Patient with minimal exertion desaturates while in bed just turning from one position to the other. Patient is positive Covid and has been positive for about 2 weeks patient reports that she is getting worse weaker in general with increased shortness of breath. Also reports that she has had some lower GI bleeding with history of diverticulitis and patient is on Eliquis due to her atrial fibrillation. Denies any hematemesis or any upper abdominal pain on exam she had left lower quadrant tenderness. Rectal exam was done showing a brown stool guaiac positive no active bleeding noted on that exam. - Vital Signs Vital signs: Temp Pulse Resp BP Pulse Ox 100 F 26 H 132/53 H 98 09/13/20 12:34 09/13/20 16:00 09/13/20 15:01 09/13/20 15:01 Vital signs stable patient does have an increased respiratory rate of 26 and requires nasal O2 for a pulse ox of 98%. 09/13/20 16:17 While in the department patient saturation did desat down to 90%, patient was placed on nasal cannula at that time. - Laboratory Results Result Diagrams: 09/13/20 12:55 09/13/20 12:55 Laboratory Results Interpreted: 09/13/20 09/13/20 09/13/20 12:55 12:55 12:55 WBC 2.6 L Hgb 11.9 L Hct 35.5 L RDW 16.1 H D-Dimer 1.06 H Sodium 133.5 L Carbon Dioxide 19 L BUN 26 H Glucose 71 L Ferritin AST 51 H Lactate Dehydrogenase C-Reactive Protein NT-Pro-B Natriuret Pep Total Protein 5.5 L Albumin 3.2 L 09/13/20 09/13/20 12:55 12:55 WBC Hgb Hct RDW D-Dimer Sodium Carbon Dioxide BUN Glucose Ferritin 373.00 H AST Lactate Dehydrogenase 374 H C-Reactive Protein 168.0 H NT-Pro-B Natriuret Pep 887 H Total Protein Albumin Patient has a white blood cell count of 2.6 hemoglobin stable at 11.9 35.5 and normal platelet count patient does have some elevations in inflammatory markers including D-dimer 1.06 C-reactive protein of 168 and LDH of 374 and a ferritin level of 373 all of these inflammatory markers are consistent with COVID-19 infection. Critical Laboratory Results Reviewed: Yes Attending or Supervising Physician who Reviewed Labs: MARQUIS MENJIVAR - Leukopenia, COVID-19 pneumonia, hypoxia - Radiology Results Radiology Results Interpreted: 09/13/20 16:[address] 09/13/20 13:31 IMPRESSION: 1. Lung infiltrates are consistent with the clinical history of COVID19 infection. 2. Aneurysmal dilatation ascending aorta. 3. Nonobstructive nephrolithiasis. 4. Sigmoid diverticulosis without suggestion of active diverticulitis. Abdomen/Pelvis CT 09/13/20 13:35 IMPRESSION: 1. Lung infiltrates are consistent with the clinical history of COVID19 infect ion. 2. Aneurysmal dilatation ascending aorta. 3. Nonobstructive nephrolithiasis. 4. Sigmoid diverticulosis without suggestion of active diverticulitis. Chest CT shows lung infiltrates consistent with COVID-19 infection and aneurysmal dilatation of the ascending aorta nonobstructive nephrolithiasis and sigmoid diverticulosis without active diverticulitis. Abdomen pelvis CT again shows same result noted above in the chest CT report no active diverticulitis aneurysmal dilatation of the ascending aorta and lung infiltrates consistent with COVID-19 in the lungs. Critical Radiology Results Reviewed: Yes Attending or Supervising Physician who Reviewed Radiology: MARQUIS MENJIVAR - COVID-19 pneumonia, hypoxia - EKG Interpretation by Me Additional EKG results interpreted by me: 09/13/20 16:19 Twelve-lead EKG shows A. fib with a ventricular rate of 105 occasional PVCs variable OH interval with atrial fibrillation QRS within normal limits QT interval variable with the irregular A. fib. Left axis deviation. Left ventricular hypertrophy with secondary repull changes no acute ST elevations consistent with any STEMI, artifactual tremors noted on each twelve-lead EKG. Critical Care Note - Critical Care Note Total time excluding time spent on procedures (mins): 45 - Pneumonia, COVID-19, chronic A. fib, hypoxia, generalized weakness, blood per rectum. Discharge - Discharge Clinical Impression: Pneumonia due to COVID-19 virus, Shortness of breath, Low oxygen saturation, Blood per rectum, Chronic a-fib Condition: Critical Disposition: ADMITTED INPATIENT Admitting Provider: Kaya (Hospitalist) Unit Admitted: [facility]U Referrals: MONTSERRAT PRESTON MD [Primary Care Provider] - Follow up as needed I personally performed the services described in the documentation, reviewed and edited the documentation which was dictated to the scribe in my presence, and it accurately records my words and actions.
--- NOTE | 2020-09-13 16:14 | RADIOLOGY REPORT (SQ) ---
EXAM DESCRIPTION: CT CHEST WITHOUT; CT ABD/PELVIS NO ORAL OR IV IMAGES COMPLETED DATE/TIME: 09/13/2020 3:41 pm REASON FOR STUDY: sobr/covid positive; lower gi bleed COMPARISON: None. CONTRAST TYPE AND DOSE: Contrast not administered. RENAL FUNCTION: Not available. TECHNIQUE: CT scan of the chest performed using helical scanning technique without contrast. Images reviewed with lung, soft tissue and bone windows. Reconstructed coronal and sagittal MPR images revi ewed. All images stored on PACS. Abdominopelvic CT performed using helical scanning technique without contrast. Images reviewed with lung, soft tissue and bone windows. Reconstructed coronal and sagittal MPR imag es reviewed. All images stored on PACS. All CT scanners at this facility use dose modulation, iterative reconstruction, and/or weight based d osing when appropriate to reduce radiation dose to as low as reasonably achievable (ALARA). [facility]: Dose Right [facility]: CareDose [facility]: Dose Right [facility]: Teradose 4D [facility]: [employer] RADIATION DOSE: CT Rad equipment meets quality standard of care and radiation dose reduction techniq ues were employed. CTDIvol: 5.3 - 5.7 mGy. DLP: 506 mGy-cm.. LIMITATIONS: None. FINDINGS: CHEST: Patchy multifocal predominantly peripheral ground-glass opacities in the lungs consistent with the hi story of COVID19 infection. No significant pleural effusion or pneumothorax. No mediastinal mass or hematoma. Ascending aorta is borderline aneurysmal at just under 4 cm. No pericardial effusion. No chest wall mass or axillary adenopathy. Bones intact. ABDOMEN AND PELVIS: 6 cm liver cyst. Spleen, pancreas, adrenal glands normal. Nonobstructive nephrolithiasis. Dense aortic calcification without aneurysm or retroperitoneal hematoma. Diverticulosis in the distal large bowel but no evidence of active diverticulitis. No mechanical bow el obstruction or suspicious wall thickening or gross mass as assessed. No ascites or abnormal gas. No pelvic lesions. Pessary in place. Osteopenic without fracture. Spondylosis. IMPRESSION: 1. Lung infiltrates are consistent with the clinical history of COVID19 infection. 2. Aneurysmal dilatation ascending aorta. 3. Nonobstructive nephrolithiasis. 4. Sigmoid diverticulosis without suggestion of active diverticulitis. TECHNICAL DOCUMENTATION: JOB ID: [id number] Quality ID # [id number]: Final reports with documentation of one or more dose reduction techniques (e.g., Au tomated exposure control, adjustment of the mA and/or kV according to patient size, use of iterative reconstruction technique) 2010 [employer]- All Rights Reserved Reading location - IP/workstation name: [email or web address]
[2020-09-13 16:50] LABS: A TYPE INFLUENZA AG NEGATIVE (NEGATIVE); B INFLUENZA AG NEGATIVE (NEGATIVE)
[2020-09-13] MEDS ORDERED: IPRATROPIUM/ALBUTEROL 0.5-2.5 MG/3 ML AMPUL NEB PRN (17:36)
[2020-09-13] MEDS ORDERED: ONDANSETRON HCL INJ/PF 4 MG/2 ML SDV IV PRN (17:41)
[2020-09-13] MEDS ORDERED: RINGERS SOLUTION,LACTATED 1,000 ML IV PRN (17:41)
[2020-09-13] MEDS ORDERED: IVERMECTIN 3 MG TABLET PO ONE (17:47)
--- NOTE | 2020-09-13 18:35 | PDOC H&P ---
History of Present Illness Admission Date/PCP: 09/13/20 16:40 MONTSERRAT PRESTON MD Patient complains of: Diarrhea History of Present Illness: SHIMON MURRAY is a 80 year old female, past medical history of rheumatoid arthritis, atrial fibrillation on Eliquis, hypertension, hypothyroidism, who was brought in by EMS due to generalized weakness, diarrhea, desaturation. Patient tested positive for COVID-19 in August 30, 2020 after her tested positive and because of it. She started exhibiting symptoms 3 days after with diarrhea, nausea vomiting, on and off fever. She had very minimal respiratory symptoms. She would have about more than 10 episodes of diarrhea per day. Today she felt very weak, and short of breath that is why EMS was called. Per EMS notes her saturation at home was 90% on room air when she ambulated. Patient denied any melena, or blood in her stool. Hospitalist service was called for further evaluation and management. In the emergency room blood pressure was 144/52, heart rate of 70, temperature 98.6, respiratory rate 20, O2 sat 100% on 2 L of nasal cannula. CBC showed leukopenia WBC count of 2.6, hemoglobin of 11.9, platelet count 170. CMP showed mild hyponatremia 133, potassium 3.9, creatinine 0.74, normal lactic acid, ferritin high at 373, CRP [address] showed lung infiltrates consistent with COVID-19 infection, 4 cm aneurysmal dilatation of the ascending aorta, nonobstructive nephrolithiasis, sigmoid diverticulosis without diverticulitis. Past Medical History Cardiac Medical History: Reports: Atrial Fibrillation - NOW CONTROLLED POST- ABLATION x2, Hyperlipidema, Hypertension Denies: Myocardial Infarction EENT Medical History: Reports: None Neurological Medical History: Reports: None Renal/ Medical History: Reports: Nephrolithiasis GI Medical History: Reports: Diverticulitis, Gastroesophageal Reflux Disease Musculoskeltal Medical History: Reports: Arthritis Past Surgical History Past Surgical History: Reports: Appendectomy, Cholecystectomy, Hysterectomy, Orthopedic Surgery - Bilateral thumbs, Left elbow tendon repair, Tonsillectomy Social History Lives with: Alone Smoking Status: Never Smoker Frequency of Alcohol Use: None Hx Recreational Drug Use: No - Advance Directive Resuscitation Status: Full Code Surrogate healthcare decision maker:: CODE STATUS discussed with the patient and she wants to be full code. She has also named her son Oseas Young as her healthcare power of contracts attorney. Family History Family History: Reviewed & Not Pertinent Parental Family History Reviewed: Yes Children Family History Reviewed: Yes Sibling(s) Family History Reviewed.: Yes Medication/Allergy Home Medications: Albuterol Sulfate [Proair HFA Inhalation Aerosol 8.5 gm MDI] 2 puff IH Q4H PRN #1 mdi 08/05/17 Amlodipine Besylate [Norvasc 10 mg Tablet] 10 mg PO DAILY 08/05/17 Apixaban [Eliquis 5 mg Tablet] 5 mg PO BID 08/05/17 Aspirin 81 mg PO DAILY 08/05/17 Docusate Sodium [Colace 100 mg Capsule] 100 mg PO DAILY 08/05/17 Folic Acid 1 mg PO DAILY 08/05/17 Hydroxychloroquine Sulfate [Plaquenil 200 mg Tablet] 200 mg PO BID 08/05/17 Levofloxacin [Levaquin 750 mg Tablet] 750 mg PO DAILY #5 tablet 08/05/17 Levothyroxine Sodium 50 mcg PO DAILY 08/05/17 Magnesium 400 mg PO DAILY 08/05/17 Methotrexate Sodium [Methotrexate] 2.5 mg PO ASDIR PRN 08/05/17 Metoprolol Succinate [Toprol Xl] 12.5 mg PO DAILY 08/05/17 Sertraline HCl [Zoloft 50 mg Tablet] 50 mg PO DAILY 08/05/17 Allergies/Adverse Reactions: amoxicillin [Amoxicillin] Allergy (Verified 09/13/20 13:51) diltiazem Allergy (Verified 09/13/20 13:51) Iodinated Contrast Media [IV Dye, Iodine Containing] Allergy (Verified 09/13/20 13:51) meperidine HCl [From Demerol] Allergy (Verified 09/13/20 13:51) Review of Systems Constitutional: PRESENT: anorexia, fatigue, fever(s), headache(s), weakness. ABSENT: night sweats Eyes: ABSENT: visual disturbances Ears: ABSENT: hearing changes Nose, Mouth, and Throat: ABSENT: mouth pain, sore throat Cardiovascular: PRESENT: dyspnea on exertion. ABSENT: chest pain, edema, orthropnea, palpitations Respiratory: PRESENT: dyspnea Gastrointestinal: PRESENT: abdominal pain, diarrhea, nausea, vomiting Psychiatric: ABSENT: suicidal ideation Endocrine: ABSENT: heat intolerance Physical Exam Vital Signs: Temp Pulse Resp BP Pulse Ox 98.6 F 21 H 144/52 H 100 09/13/20 17:00 09/13/20 17:01 09/13/20 17:01 09/13/20 17:01 Intake & Output 09/12/20 09/13/20 09/14/20 06:59 06:59 06:59 Intake Total 100 Balance 100 Weight 58.967 kg General appearance: PRESENT: cooperative, mild distress, thin Head exam: PRESENT: atraumatic, normocephalic Eye exam: PRESENT: EOMI, PERRLA Mouth exam: PRESENT: moist Neck exam: PRESENT: full ROM Respiratory exam: PRESENT: clear to auscultation patel, symmetrical, unlabored Cardiovascular exam: PRESENT: RRR, +S1, +S2 Pulses: PRESENT: +2 pedal pulses bilateral GI/Abdominal exam: PRESENT: hyperactive bowel sounds, soft. ABSENT: rebound, tenderness Rectal exam: ABSENT: black stool Extremities exam: ABSENT: joint swelling, +2 edema Neurological exam: PRESENT: alert, awake, oriented to person, oriented to place, oriented to time, oriented to situation Psychiatric exam: PRESENT: normal mood Results Laboratory Results: 09/13/20 12:55 09/13/20 12:55 09/13/20 09/13/20 09/13/20 12:55 12:55 12:55 WBC 2.6 L RBC 4.01 Hgb 11.9 L Hct 35.5 L MCV 89 MCH 29.6 MCHC 33.5 RDW 16.1 H Plt Count 170 Seg Neutrophils % Not Reportable VBG pH 7.37 VBG pCO2 36.6 VBG HCO3 20.5 VBG Base Excess -4.2 Sodium 133.5 L Potassium 3.9 Chloride 103 Carbon Dioxide 19 L Anion Gap 12 BUN 26 H Creatinine 0.74 Est GFR ( Amer) > 60 Glucose 71 L Lactic Acid Calcium 8.9 Ferritin Total Bilirubin 0.7 AST 51 H Alkaline Phosphatase 75 C-Reactive Protein Total Protein 5.5 L Albumin 3.2 L Lipase Blood Type Antibody Screen 09/13/20 09/13/20 09/13/20 12:55 12:55 13:16 WBC RBC Hgb Hct MCV MCH MCHC RDW Plt Count Seg Neutrophils % VBG pH VBG pCO2 VBG HCO3 VBG Base Excess Sodium Potassium Chloride Carbon Dioxide Anion Gap BUN Creatinine Est GFR ( Amer) Glucose Lactic Acid 1.0 Calcium Ferritin 373.00 H Total Bilirubin AST Alkaline Phosphatase C-Reactive Protein 168.0 H Total Protein Albumin Lipase 37.2 Blood Type A NEGATIVE Antibody Screen NEGATIVE 09/13/20 16:50 WBC RBC Hgb Hct MCV MCH MCHC RDW Plt Count Seg Neutrophils % VBG pH VBG pCO2 VBG HCO3 VBG Base Excess Sodium Potassium Chloride Carbon Dioxide Anion Gap BUN Creatinine Est GFR ( Amer) Glucose Lactic Acid 0.7 Calcium Ferritin Total Bilirubin AST Alkaline Phosphatase C-Reactive Protein Total Protein Albumin Lipase Blood Type Antibody Screen 09/13/20 09/13/20 12:55 12:55 Troponin I 0.027 NT-Pro-B Natriuret Pep 887 H Impressions: Chest CT 09/13/20 13:31 IMPRESSION: 1. Lung infiltrates are consistent with the clinical history of COVID19 infection. 2. Aneurysmal dilatation ascending aorta. 3. Nonobstructive nephrolithiasis. 4. Sigmoid diverticulosis without suggestion of active diverticulitis. Abdomen/Pelvis CT 09/13/20 13:35 IMPRESSION: 1. Lung infiltrates are consistent with the clinical history of COVID19 infection. 2. Aneurysmal dilatation ascending aorta. 3. Nonobstructive nephrolithiasis. 4. Sigmoid diverticulosis without suggestion of active diverticulitis. Assessment and Plan - Diagnosis (1) Acute respiratory failure with hypoxia Is this a current diagnosis for this admission?: Yes Plan: -Per EMS patient was saturating 90% with ambulation and was short of breath -Tested positive for Covid approximately 2 weeks prior -Currently 99% on 4 L of nasal cannula -X-ray showed findings consistent with Covid infection -O2 support as needed -Nebs as needed -Started on Covid treatment (2) Diarrhea due to COVID-19 Is this a current diagnosis for this admission?: Yes Plan: -Tested positive for Covid 2 weeks prior -About 10 episodes of diarrhea per day with associated generalized weakness -Mild hyponatremia sodium 133.5 normal potassium, creatinine 0.74 -We will gently hydrate her with LR 80 cc/h and reassess her volume status tomorrow -Stool C. difficile, stool culture and Gram stain, stool WBC (3) Pneumonia due to COVID-19 virus Is this a current diagnosis for this admission?: Yes Plan: -Noted to be desaturating at home -CT chest no pulmonary embolism, lung infiltrate consistent with the clinical history of COVID-19 infection -CRP and ferritin are both elevated -On 4 L of nasal cannula saturating 99%. -Started on ivermectin 9 mg daily for 2 doses -Started on Solu-Medrol 40 mg IV every 12 -Vitamin C, vitamin D, zinc, melatonin - (4) Rheumatoid arthritis Qualifiers: Rheumatoid arthritis location: multiple sites Rheumatoid factor presence: unspecified presence Qualified Code(s): M06.9 - Rheumatoid arthritis, unspecified Is this a current diagnosis for this admission?: Yes Plan: -Patient is on hydroxychloroquine and methotrexate which was resumed (5) Chronic a-fib Is this a current diagnosis for this admission?: Yes Plan: -Chronic A. fib -Currently sinus rhythm -Continue metoprolol -Eliquis 5 mg twice daily resumed (6) Hypothyroidism Qualifiers: Hypothyroidism type: unspecified Qualified Code(s): E03.9 - Hypothyroidism, unspecified Is this a current diagnosis for this admission?: Yes Plan: -We will resume levothyroxine (7) HTN (hypertension) Qualifiers: Hypertension type: essential hypertension Qualified Code(s): I10 - Essential (primary) hypertension Is this a current diagnosis for this admission?: Yes Plan: -Metoprolol resumed (8) HLD (hyperlipidemia) Qualifiers: Hyperlipidemia type: unspecified Qualified Code(s): E78.5 - Hyperlipidemia, unspecified Is this a current diagnosis for this admission?: Yes Plan: Not on any statin (9) Ascending aortic aneurysm Is this a current diagnosis for this admission?: Yes Plan: -4 cm ascending aortic aneurysm - Time Time Spent with patient: 35 or more minutes Medications reviewed and adjusted accordingly: Yes Anticipated Discharge Disposition: Home with Home Health Anticipated Discharge Timeframe: tbd
[2020-09-13] MEDS: ASCORBIC ACID 500 MG TABLET PO SCH (19:10)
[2020-09-13] MEDS: MELATONIN 5 MG TABLET PO SCH (21:16)
[2020-09-13] MEDS: APIXABAN 5 MG TABLET PO SCH (21:16)
[2020-09-13] MEDS ORDERED: IVERMECTIN 3 MG TABLET ONE (21:33)
[2020-09-13] MEDS: IVERMECTIN 3 MG TABLET PO SCH (22:00)
[2020-09-13] MEDS ORDERED: DOXYCYCLINE HYCLATE 100 MG TABLET PO SCH (22:00)
--- NOTE | 2020-09-14 00:24 | EKG REPORT ---
SEVERITY:- ABNORMAL ECG - SINUS TACHYCARDIA ATRIAL PREMATURE COMPLEXES LVH WITH SECONDARY REPOLARIZATION ABNORMALITY : Confirmed by: Sasha Hinojosa 14-Sep-2020 00:24:00
[2020-09-14] MEDS: METHYLPREDNISOLONE INJ 40 MG/1 ML SDV IV SCH ×2 (05:17→17:28)
[2020-09-14 06:09] LABS: HEMATOCRIT 32.6 % (36.0-47.0); HEMOGLOBIN 11.4 g/dL (12.0-15.5); MEAN CORPUSCULAR HEMOGLOBIN 30.2 pg (27.0-33.4); MEAN CORPUSCULAR HGB CONC 34.9 g/dL (32.0-36.0); MEAN CORPUSCULAR VOLUME 87 fl (80-97); PLATELET COUNT 122 10^3/uL (150-450); RED BLOOD COUNT 3.77 10^6/uL (3.72-5.28)
[2020-09-14 06:26] LABS: ALBUMIN 2.8 g/dL (3.5-5.0); ALKALINE PHOSPHATASE 58 U/L (38-126); ANION GAP 9 (5-19); ASPARTATE AMINO TRANSFERASE 52 U/L (14-36); BILIRUBIN,DIRECT 0.4 mg/dL (0.0-0.4); BILIRUBIN,TOTAL 0.7 mg/dL (0.2-1.3); BLOOD UREA NITROGEN 25 mg/dL (7-20); CALCIUM 8.6 mg/dL (8.4-10.2); CARBON DIOXIDE 21 mmol/L (22-30); CHLORIDE 104 mmol/L (98-107); GLUCOSE 187 mg/dL (75-110); POTASSIUM 4.3 mmol/L (3.6-5.0); TOTAL PROTEIN 5.2 g/dL (6.3-8.2)
[2020-09-14 07:07] LABS: ABSOLUTE LYMPHOCYTES# (MANUAL) 0.2 10^3/uL (0.5-4.7); ABSOLUTE MONOCYTES # (MANUAL) 0.1 10^3/uL (0.1-1.4); BASOPHILS % (MANUAL) 0 % (0-2); EOSINOPHILS % (MANUAL) 0 % (0-6); LYMPHOCYTES % (MANUAL) 16 % (13-45); MONOCYTES % (MANUAL) 10 % (3-13); SEGMENTED NEUTROPHILS % (MAN) 74 % (42-78); TOTAL CELLS COUNTED 50
[2020-09-14 07:13] LABS: ANISOCYTOSIS 1+; BURR CELLS SLIGHT; OVALOCYTES 1+; PLATELET COMMENT ADEQUATE; POIKILOCYTOSIS 1+; TEAR DROP CELLS 1+; TOXIC GRANULATION SLIGHT
[2020-09-14 07:15] LABS: WHITE BLOOD COUNT 1.1 10^3/uL (4.0-10.5)
--- NOTE | 2020-09-14 08:07 | PDOC CONSULTATION ---
Consultation Consult Date: 09/14/20 Attending physician:: KATELYNN MCKEON Provider Consulted: DEBO REDDY Consult reason:: Neutropenia, mild thrombocytopenia History of Present Illness Admission Date/PCP: 09/13/20 16:40 MONTSERRAT PRESTON MD Patient complains of: Shortness of breath, weakness, fever, diarrhea History of Present Illness: SHIMON MURRAY is a 80 year old female with known history of rheumatoid arthritis with being on recent Plaquenil as well as methotrexate, unfortunately her had severe Covid infection and actually of that in the last week. She began having severe diarrhea a few days ago and a few low-grade fevers, she does have some shortness of breath and imaging indicated patchy inf iltrates consistent with Covid infection of the lungs. She was admitted here and her white count has dropped, today her ANC is 800. We were consulted for this issue. Past Medical History Cardiac Medical History: Reports: Atrial Fibrillation - NOW CONTROLLED POST- ABLATION x2, Hyperlipidema, Hypertension Denies: Myocardial Infarction EENT Medical History: Reports: None Neurological Medical History: Reports: None Renal/ Medical History: Reports: Nephrolithiasis GI Medical History: Reports: Diverticulitis, Gastroesophageal Reflux Disease Musculoskeltal Medical History: Reports: Arthritis - Rheumatoid arthritis Psychiatric Medical History: Reports: Depression Past Surgical History Past Surgical History: Reports: Appendectomy, Cholecystectomy, Hysterectomy, Or thopedic Surgery - Bilateral thumbs, Left elbow tendon repair, Tonsillectomy Social History Lives with: Alone Smoking Status: Never Smoker Frequency of Alcohol Use: None Hx Recreational Drug Use: No - Advance Directive Resuscitation Status: Full Code Family History Family History: Reviewed & Not Pertinent Parental Family History Reviewed: Yes Children Family History Reviewed: Yes Sibling(s) Family History Reviewed.: Yes Medication/Allergy Home Medications: Albuterol Sulfate [Proair HFA Inhalation Aerosol 8.5 gm MDI] 2 puff IH Q4H PRN #1 mdi 08/05/17 Amlodipine Besylate [Norvasc 10 mg Tablet] 10 mg PO DAILY 08/05/17 Apixaban [Eliquis 5 mg Tablet] 5 mg PO BID 08/05/17 Aspirin 81 mg PO DAILY 08/05/17 Docusate Sodium [Colace 100 mg Capsule] 100 mg PO DAILY 08/05/17 Folic Acid 1 mg PO DAILY 08/05/17 Hydroxychloroquine Sulfate [Plaquenil 200 mg Tablet] 200 mg PO BID 08/05/17 Levofloxacin [Levaquin 750 mg Tablet] 750 mg PO DAILY #5 tablet 08/05/17 Levothyroxine Sodium 50 mcg PO DAILY 08/05/17 Magnesium 400 mg PO DAILY 08/05/17 Methotrexate Sodium [Methotrexate] 2.5 mg PO ASDIR PRN 08/05/17 Metoprolol Succinate [Toprol Xl] 12.5 mg PO DAILY 08/05/17 Sertraline HCl [Zoloft 50 mg Tablet] 50 mg PO DAILY 08/05/17 Allergies/Adverse Reactions: amoxicillin [Amoxicillin] Allergy (Verified 09/13/20 13:51) diltiazem Allergy (Verified 09/13/20 13:51) Iodinated Contrast Media [IV Dye, Iodine Containing] Allergy (Verified 09/13/20 13:51) meperidine HCl [From Demerol] Allergy (Verified 09/13/20 13:51) Review of Systems Constitutional: ABSENT: chills, fever(s), headache(s), weight gain, weight loss Eyes: ABSENT: visual disturbances Ears: ABSENT: hearing changes Cardiovascular: ABSENT: chest pain, dyspnea on exertion, edema, orthropnea, palpitations Respiratory: ABSENT: cough, hemoptysis Gastrointestinal: ABSENT: abdominal pain, constipation, diarrhea, hematemesis, hematochezia, nausea, vomiting Genitourinary: ABSENT: dysuria, hematuria Musculoskeletal: ABSENT: joint swelling Integumentary: ABSENT: rash, wounds Neurological: ABSENT: abnormal gait, abnormal speech, confusion, dizziness, focal weakness, syncope Psychiatric: ABSENT: anxiety, depression, homidical ideation, suicidal ideation Endocrine: ABSENT: cold intolerance, heat intolerance, polydipsia, polyuria Hematologic/Lymphatic: ABSENT: easy bleeding, easy bruising Physical Exam Vital Signs: Temp Pulse Resp BP Pulse Ox 97.5 F 54 L 16 150/56 H 100 09/14/20 03:47 09/14/20 07:00 09/14/20 03:47 09/14/20 03:47 09/14/20 03:47 Intake & Output 09/13/20 09/14/20 09/15/20 06:59 06:59 06:59 Intake Total 1560 Balance 1560 Weight 58.4 kg General appearance: PRESENT: no acute distress, well-developed, well-nourished Head exam: PRESENT: atraumatic, normocephalic Eye exam: PRESENT: conjunctiva pink, EOMI, PERRLA. ABSENT: scleral icterus Ear exam: PRESENT: normal external ear exam Mouth exam: PRESENT: moist, tongue midline Neck exam: ABSENT: carotid bruit, JVD, lymphadenopathy, thyromegaly Respiratory exam: PRESENT: clear to auscultation patel. ABSENT: rales, rhonchi, wheezes Cardiovascular exam: PRESENT: RRR. ABSENT: diastolic murmur, rubs, systolic murmur Pulses: PRESENT: normal dorsalis pedis pul Vascular exam: PRESENT: normal capillary refill GI/Abdominal exam: PRESENT: normal bowel sounds, soft. ABSENT: distended, guarding, mass, organolmegaly, rebound, tenderness Rectal exam: PRESENT: deferred Extremities exam: PRESENT: full ROM. ABSENT: calf tenderness, clubbing, pedal edema Neurological exam: PRESENT: alert, awake, oriented to person, oriented to place, oriented to time, oriented to situation, CN II-XII grossly intact. ABSENT: motor sensory deficit Psychiatric exam: PRESENT: appropriate affect, normal mood. ABSENT: homicidal ideation, suicidal ideation Skin exam: PRESENT: dry, intact, warm. ABSENT: cyanosis, rash Results Laboratory Results: 09/14/20 05:43 09/14/20 05:43 09/13/20 09/13/20 09/13/20 12:55 12:55 12:55 WBC 2.6 L RBC 4.01 Hgb 11.9 L Hct 35.5 L MCV 89 MCH 29.6 MCHC 33.5 RDW 16.1 H Plt Count 170 Seg Neutrophils % Not Reportable VBG pH 7.37 VBG pCO2 36.6 VBG HCO3 20.5 VBG Base Excess -4.2 Sodium 133.5 L Potassium 3.9 Chloride 103 Carbon Dioxide 19 L Anion Gap 12 BUN 26 H Creatinine 0.74 Est GFR ( Amer) > 60 Glucose 71 L Lactic Acid Calcium 8.9 Ferritin Total Bilirubin 0.7 AST 51 H Alkaline Phosphatase 75 C-Reactive Protein Total Protein 5.5 L Albumin 3.2 L Lipase Blood Type Antibody Screen 09/13/20 09/13/20 09/13/20 12:55 12:55 13:16 WBC RBC Hgb Hct MCV MCH MCHC RDW Plt Count Seg Neutrophils % VBG pH VBG pCO2 VBG HCO3 VBG Base Excess Sodium Potassium Chloride Carbon Dioxide Anion Gap BUN Creatinine Est GFR ( Amer) Glucose Lactic Acid 1.0 Calcium Ferritin 373.00 H Total Bilirubin AST Alkaline Phosphatase C-Reactive Protein 168.0 H Total Protein Albumin Lipase 37.2 Blood Type A NEGATIVE Antibody Screen NEGATIVE 09/13/20 09/13/20 09/14/20 16:50 20:00 05:43 WBC 1.1 L* D RBC 3.77 Hgb 11.4 L Hct 32.6 L MCV 87 MCH 30.2 MCHC 34.9 RDW 16.0 H Plt Count 122 L Seg Neutrophils % Not Reportable VBG pH VBG pCO2 VBG HCO3 VBG Base Excess Sodium Potassium Chloride Carbon Dioxide Anion Gap BUN Creatinine Est GFR ( Amer) Glucose Lactic Acid 0.7 0.9 Calcium Ferritin Total Bilirubin AST Alkaline Phosphatase C-Reactive Protein Total Protein Albumin Lipase Blood Type Antibody Screen 09/14/20 05:43 WBC RBC Hgb Hct MCV MCH MCHC RDW Plt Count Seg Neutrophils % VBG pH VBG pCO2 VBG HCO3 VBG Base Excess Sodium 134.3 L Potassium 4.3 Chloride 104 Carbon Dioxide 21 L Anion Gap 9 BUN 25 H Creatinine 0.67 Est GFR ( Amer) > 60 Glucose 187 H Lactic Acid Calcium 8.6 Ferritin Total Bilirubin 0.7 AST 52 H Alkaline Phosphatase 58 C-Reactive Protein Total Protein 5.2 L Albumin 2.8 L Lipase Blood Type Antibody Screen 09/13/20 09/13/20 09/13/20 12:55 12:55 20:00 Troponin I 0.027 0.035 NT-Pro-B Natriuret Pep 887 H Impressions: Chest CT 09/13/20 13:31 IMPRESSION: 1. Lung infiltrates are consistent with the clinical history of COVID19 infection. 2. Aneurysmal dilatation ascending aorta. 3. Nonobstructive nephrolithiasis. 4. Sigmoid diverticulosis without suggestion of active diverticulitis. Abdomen/Pelvis CT 09/13/20 13:35 IMPRESSION: 1. Lung infiltrates are consistent with the clinical history of COVID19 infection. 2. Aneurysmal dilatation ascending aorta. 3. Nonobstructive nephrolithiasis. 4. Sigmoid diverticulosis without suggestion of active diverticulitis. Assessment & Plan - Diagnosis (1) Neutropenia associated with infection Is this a current diagnosis for this admission?: Yes Plan: Probable neutropenia associated with the Covid infection, many times we see leukopenia and lymphocytosis. This does resolve once the Covid infection is controlled by the immune system and the patient improves. Suggested to hospi talist team to initiate broad-spectrum antibiotic for bacterial coverage because patient is at high risk for bacterial pneumonia. Would suggest Carbapenem. We do not really have data on growth factor support in the setting of Covid infection, I will review this further in the literature to see if there is any new data. But, I would be concerned that initiation of something like Neupogen may increase the chance of some sort of cytokine release syndrome which may worsen her condition. Therefore, currently I would hold on that. (2) Thrombocytopenia Is this a current diagnosis for this admission?: Yes Plan: Probably also related to infection, may worsen also over time. Continue to monitor. - Time Time Spent: Greater than 70 Minutes
[2020-09-14] MEDS ORDERED: ZINC SULFATE 220 MG CAPSULE PO SCH (10:00)
[2020-09-14] MEDS ORDERED: MEROPENEM 1 GM VIAL IV SCH (10:00)
[2020-09-14] MEDS: MEROPENEM 1 GM in NORMAL SALINE 50 ML IV SCH ×2 (10:33→21:00)
[2020-09-14] MEDS: METOPROLOL SUCCINATE 25 MG TAB.SR.24H PO SCH (10:33)
[2020-09-14] MEDS: MAGNESIUM OXIDE 400 MG TABLET PO SCH (10:33)
[2020-09-14] MEDS: APIXABAN 5 MG TABLET PO SCH ×2 (10:33→17:28)
[2020-09-14] MEDS: CHOLECALCIFEROL (D3) 1,000 UNIT (25 MCG) TABLET PO SCH (10:33)
[2020-09-14] MEDS: HYDROXYCHLOROQUINE SULFATE 200 MG TABLET PO SCH ×2 (10:34→17:29)
[2020-09-14] MEDS: ASCORBIC ACID 500 MG TABLET PO SCH ×2 (10:34→17:28)
[2020-09-14] MEDS: IVERMECTIN 3 MG TABLET PO SCH (10:34)
[2020-09-14 12:39] LABS: APPEARANCE,URINE CLOUDY; BILIRUBIN,URINE NEGATIVE (NEGATIVE); COLOR,URINE YELLOW; GLUCOSE, URINE NEGATIVE (NEGATIVE); KETONES,URINE TRACE mg/dL (NEGATIVE); LEUKOCYTE ESTERASE,URINE NEGATIVE (NEGATIVE); NITRITE,URINE NEGATIVE (NEGATIVE); PROTEIN,URINE 100 mg/dL (NEGATIVE); URINE SPECIFIC GRAVITY 1.019; UROBILINOGEN,URINE NEGATIVE mg/dL (<2.0)
--- NOTE | 2020-09-14 14:34 | PDOC PROGRESS REPORT ---
Subjective Date:: 09/14/20 Subjective:: SHIMON MURRAY is a 80 year old female, past medical history of rheumat oid arthritis, atrial fibrillation on Eliquis, hypertension, hypothyroidism, who was brought in by EMS due to generalized weakness, diarrhea, desaturation. Patient tested positive for COVID-19 in August 30, 2020 after her tested positive and because of it. She started exhibiting symptoms 3 days after with diarrhea, nausea vomiting, on and off fever. She had very minimal respiratory symptoms. She would have about more than 10 episodes of diarrhea per day. Today she felt very weak, and short of breath that is why EMS was called. Per EMS notes her saturation at home was 90% on room air when she ambulated. Patient denied any melena, or blood in her stool. Hospitalist service was called for further evaluation and management. In the emergency room blood pressure was 144/52, heart rate of 70, temperature 98.6, respiratory rate 20, O2 sat 100% on 2 L of nasal cannula. CBC showed leukopenia WBC count of 2.6, hemoglobin of 11.9, platelet count 170. CMP showed mild hyponatremia 133, potassium 3.9, creatinine 0.74, normal lactic acid, ferritin high at 373, CRP [address] showed lung infiltrates consistent with COVID-19 infection, 4 cm aneurysmal dilatation of the ascending aorta, nonobstructive nephrolithiasis, sigmoid diverticulosis without diverticulitis. D2 Hospital stay. Patient was seen and examined at bedside. She reports that she feels much better today, has not had any further diarrhea since being admitted. Her Oxygen needs have decreased. She received Ivermectin after discussing it with her. WBC count decreased to 1.1 today, hgb 11.5, plt 122. ANC was 800. I spoke to Dr. Cerda who stated that this is still likely from the COVID and would resolve. However he did recommend to start broad spectrum antibiotics as she has low ANC and at a higher risk for bacterial infection. i have started her on meropenem as she is allergic to penicillin and levaquin will not be broad enough. I have spoken to her son andres and have given him an update. Reason For Visit: COVID 19 VIRUS INFECTION Physical Exam Vital Signs: Temp Pulse Resp BP Pulse Ox 97.5 F 57 L 16 164/49 H 95 09/14/20 08:13 09/14/20 11:35 09/14/20 11:35 09/14/20 11:35 09/14/20 11:35 Intake & Output 09/13/20 09/14/20 09/15/20 06:59 06:59 06:59 Intake Total 1560 Balance 1560 Weight 58.4 kg General appearance: PRESENT: no acute distress, cooperative Head exam: PRESENT: atraumatic, normocephalic Eye exam: PRESENT: EOMI, PERRLA Neck exam: PRESENT: full ROM Respiratory exam: PRESENT: clear to auscultation patel, symmetrical, unlabored Cardiovascular exam: PRESENT: RRR, +S1, +S2 Pulses: PRESENT: +2 pedal pulses bilateral GI/Abdominal exam: PRESENT: normal bowel sounds, soft Extremities exam: PRESENT: full ROM Musculoskeletal exam: PRESENT: full ROM Neurological exam: PRESENT: alert, awake, oriented to person, oriented to place, oriented to time, oriented to situation Psychiatric exam: PRESENT: normal mood Skin exam: PRESENT: normal color Results Laboratory Results: 09/14/20 05:43 09/14/20 05:43 09/13/20 09/13/20 09/13/20 12:55 12:55 12:55 WBC 2.6 L RBC 4.01 Hgb 11.9 L Hct 35.5 L MCV 89 MCH 29.6 MCHC 33.5 RDW 16.1 H Plt Count 170 Seg Neutrophils % Not Reportable Sodium 133.5 L Potassium 3.9 Chloride 103 Carbon Dioxide 19 L Anion Gap 12 BUN 26 H Creatinine 0.74 Est GFR ( Amer) > 60 Glucose 71 L Lactic Acid 1.0 Calcium 8.9 Ferritin Total Bilirubin 0.7 AST 51 H Alkaline Phosphatase 75 C-Reactive Protein Total Protein 5.5 L Albumin 3.2 L Lipase Urine Color Urine Appearance Urine pH Ur Specific [place] Urine Protein Urine Glucose (UA) Urine Ketones Urine Blood Urine Nitrite Ur Leukocyte Esterase Urine WBC (Auto) Urine RBC (Auto) Blood Type Antibody Screen 09/13/20 09/13/20 09/13/20 12:55 13:16 16:50 WBC RBC Hgb Hct MCV MCH MCHC RDW Plt Count Seg Neutrophils % Sodium Potassium Chloride Carbon Dioxide Anion Gap BUN Creatinine Est GFR ( Amer) Glucose Lactic Acid 0.7 Calcium Ferritin 373.00 H Total Bilirubin AST Alkaline Phosphatase C-Reactive Protein 168.0 H Total Protein Albumin Lipase 37.2 Urine Color Urine Appearance Urine pH Ur Specific [place] Urine Protein Urine Glucose (UA) Urine Ketones Urine Blood Urine Nitrite Ur Leukocyte Esterase Urine WBC (Auto) Urine RBC (Auto) Blood Type A NEGATIVE Antibody Screen NEGATIVE 09/13/20 09/14/20 09/14/20 20:00 05:43 05:43 WBC 1.1 L* D RBC 3.77 Hgb 11.4 L Hct 32.6 L MCV 87 MCH 30.2 MCHC 34.9 RDW 16.0 H Plt Count 122 L Seg Neutrophils % Not Reportable Sodium 134.3 L Potassium 4.3 Chloride 104 Carbon Dioxide 21 L Anion Gap 9 BUN 25 H Creatinine 0.67 Est GFR ( Amer) > 60 Glucose 187 H Lactic Acid 0.9 Calcium 8.6 Ferritin Total Bilirubin 0.7 AST 52 H Alkaline Phosphatase 58 C-Reactive Protein Total Protein 5.2 L Albumin 2.8 L Lipase Urine Color Urine Appearance Urine pH Ur Specific [place] Urine Protein Urine Glucose (UA) Urine Ketones Urine Blood Urine Nitrite Ur Leukocyte Esterase Urine WBC (Auto) Urine RBC (Auto) Blood Type Antibody Screen 09/14/20 11:35 WBC RBC Hgb Hct MCV MCH MCHC RDW Plt Count Seg Neutrophils % Sodium Potassium Chloride Carbon Dioxide Anion Gap BUN Creatinine Est GFR ( Amer) Glucose Lactic Acid Calcium Ferritin Total Bilirubin AST Alkaline Phosphatase C-Reactive Protein Total Protein Albumin Lipase Urine Color YELLOW Urine Appearance CLOUDY Urine pH 6.0 Ur Specific [place] 1.019 Urine Protein 100 H Urine Glucose (UA) NEGATIVE Urine Ketones TRACE H Urine Blood NEGATIVE Urine Nitrite NEGATIVE Ur Leukocyte Esterase NEGATIVE Urine WBC (Auto) 4 Urine RBC (Auto) 14 Blood Type Antibody Screen 09/13/20 09/13/20 09/13/20 12:55 12:55 20:00 Troponin I 0.027 0.035 NT-Pro-B Natriuret Pep 887 H 09/14/20 05:43 Troponin I 0.015 NT-Pro-B Natriuret Pep Impressions: Chest CT 09/13/20 13:31 IMPRESSION: 1. Lung infiltrates are consistent with the clinical history of COVID19 infection. 2. Aneurysmal dilatation ascending aorta. 3. Nonobstructive nephrolithiasis. 4. Sigmoid diverticulosis without suggestion of active diverticulitis. Abdomen/Pelvis CT 09/13/20 13:35 IMPRESSION: 1. Lung infiltrates are consistent with the clinical history of COVID19 infection. 2. Aneurysmal dilatation ascending aorta. 3. Nonobstructive nephrolithiasis. 4. Sigmoid diverticulosis without suggestion of active diverticulitis. Assessment and Plan - Diagnosis (1) Acute respiratory failure with hypoxia Is this a current diagnosis for this admission?: Yes Plan: - Improving. O2 needs have decreased. -Per EMS patient was saturating 90% with ambulation and was short of breath -Tested positive for Covid approximately 2 weeks prior -Currently 99% on 4 L of nasal cannula -X-ray showed findings consistent with COVID infection -O2 support as needed -Nebs as needed -Started on Covid treatment (2) Diarrhea due to COVID-19 Is this a current diagnosis for this admission?: Yes Plan: -Tested positive for Covid 2 weeks prior -About 10 episodes of diarrhea per day with associated generalized weakness -Mild hyponatremia sodium 133.5 normal potassium, creatinine 0.74 -IV fluids stopped. I have encouraged her to increase her oral intake. -Stool C. difficile, stool culture and Gram stain, stool WBC (3) Pneumonia due to COVID-19 virus Is this a current diagnosis for this admission?: Yes Plan: -Noted to be desaturating at home -CT chest no pulmonary embolism, lung infiltrate consistent with the clinical history of COVID-19 infection -CRP and ferritin are both elevated -On 4 L of nasal cannula saturating 99%. -Started on ivermectin 9 mg daily for 2 doses -Started on Solu-Medrol 40 mg IV every 12 -Vitamin C, vitamin D, zinc, melatonin - (4) Rheumatoid arthritis Qualifiers: Rheumatoid arthritis location: multiple sites Rheumatoid factor presence: unspecified presence Qualified Code(s): M06.9 - Rheumatoid arthritis, unspecified Is this a current diagnosis for this admission?: Yes Plan: -Patient is on hydroxychloroquine which was resumed (5) Chronic a-fib Is this a current diagnosis for this admission?: Yes Plan: -Chronic A. fib -Currently sinus rhythm -Continue metoprolol -Eliquis 5 mg twice daily resumed (6) Hypothyroidism Qualifiers: Hypothyroidism type: unspecified Qualified Code(s): E03.9 - Hypothyroidism, unspecified Is this a current diagnosis for this admission?: Yes Plan: -We will resume levothyroxine (7) HTN (hypertension) Qualifiers: Hypertension type: essential hypertension Qualified Code(s): I10 - Essential (primary) hypertension Is this a current diagnosis for this admission?: Yes Plan: -Metoprolol resumed (8) HLD (hyperlipidemia) Qualifiers: Hyperlipidemia type: unspecified Qualified Code(s): E78.5 - Hyperlipidemia, unspecified Is this a current diagnosis for this admission?: Yes Plan: Not on any statin (9) Ascending aortic aneurysm Is this a current diagnosis for this admission?: Yes Plan: -4 cm ascending aortic aneurysm - Time Time Spent with patient: 25-34 minutes Medications reviewed and adjusted accordingly: Yes Anticipated Discharge Disposition: Home, Self Care Anticipated Discharge Timeframe: tbd
[2020-09-14 14:57] LABS: PATH REVIEW PATHOLOGIST REVIEWED
[2020-09-14] MEDS: ACETAMINOPHEN 325 MG TABLET PO PRN (20:54)
[2020-09-14] MEDS: MELATONIN 5 MG TABLET PO SCH (21:00)
[2020-09-15] MEDS: METHYLPREDNISOLONE INJ 40 MG/1 ML SDV IV SCH ×2 (05:39→17:21)
[2020-09-15 06:14] LABS: ALBUMIN 2.9 g/dL (3.5-5.0); ALKALINE PHOSPHATASE 59 U/L (38-126); ANION GAP 9 (5-19); ASPARTATE AMINO TRANSFERASE 38 U/L (14-36); BILIRUBIN,DIRECT 0.2 mg/dL (0.0-0.4); BILIRUBIN,TOTAL 0.4 mg/dL (0.2-1.3); BLOOD UREA NITROGEN 32 mg/dL (7-20); CALCIUM 8.8 mg/dL (8.4-10.2); CARBON DIOXIDE 22 mmol/L (22-30); CHLORIDE 103 mmol/L (98-107); GLUCOSE 207 mg/dL (75-110); POTASSIUM 4.4 mmol/L (3.6-5.0); TOTAL PROTEIN 5.5 g/dL (6.3-8.2)
[2020-09-15 06:41] LABS: HEMOGLOBIN 11.1 g/dL (12.0-15.5); MEAN CORPUSCULAR HEMOGLOBIN 30.3 pg (27.0-33.4); MEAN CORPUSCULAR HGB CONC 34.7 g/dL (32.0-36.0); MEAN CORPUSCULAR VOLUME 87 fl (80-97); PLATELET COUNT 165 10^3/uL (150-450); RED BLOOD COUNT 3.66 10^6/uL (3.72-5.28); RED CELL DISTRIBUTION WIDTH 15.6 % (11.5-14.0)
[2020-09-15 06:49] LABS: WHITE BLOOD COUNT 3.4 10^3/uL (4.0-10.5)
[2020-09-15 06:51] LABS: ABSOLUTE LYMPHOCYTES# (MANUAL) 0.1 10^3/uL (0.5-4.7); ABSOLUTE MONOCYTES # (MANUAL) 0.2 10^3/uL (0.1-1.4); BAND NEUTROPHILS % (MANUAL) 1 % (3-5); BASOPHILS % (MANUAL) 0 % (0-2); EOSINOPHILS % (MANUAL) 0 % (0-6); LYMPHOCYTES % (MANUAL) 2 % (13-45); MONOCYTES % (MANUAL) 5 % (3-13); SEGMENTED NEUTROPHILS % (MAN) 92 % (42-78); TOTAL CELLS COUNTED 100
[2020-09-15 06:52] LABS: ANISOCYTOSIS SLIGHT; OVALOCYTES SLIGHT
[2020-09-15 06:53] LABS: PLATELET COMMENT ADEQUATE
--- NOTE | 2020-09-15 08:33 | PDOC PROGRESS REPORT ---
Subjective Date:: 09/15/20 Subjective:: White count is improved. Clinically patient seems stable. Reason For Visit: COVID 19 VIRUS INFECTION Physical Exam Vital Signs: Temp Pulse Resp BP Pulse Ox 97.3 F 56 L 18 143/56 H 97 09/15/20 03:30 09/15/20 07:00 09/15/20 03:30 09/15/20 03:30 09/15/20 03:30 Intake & Output 09/14/20 09/15/20 09/16/20 06:59 06:59 06:59 Intake Total 1560 2060 Output Total 850 Balance 1560 1210 Weight 58.4 kg 60.1 kg General appearance: PRESENT: no acute distress, well-developed, well-nourished Head exam: PRESENT: atraumatic, normocephalic Eye exam: PRESENT: conjunctiva pink, EOMI, PERRLA. ABSENT: scleral icterus Ear exam: PRESENT: normal external ear exam Mouth exam: PRESENT: moist, tongue midline Neck exam: ABSENT: carotid bruit, JVD, lymphadenopathy, thyromegaly Respiratory exam: PRESENT: clear to auscultation patel. ABSENT: rales, rhonchi, wheezes Cardiovascular exam: PRESENT: RRR. ABSENT: diastolic murmur, rubs, systolic murmur Pulses: PRESENT: normal dorsalis pedis pul Vascular exam: PRESENT: normal capillary refill GI/Abdominal exam: PRESENT: normal bowel sounds, soft. ABSENT: distended, guarding, mass, organolmegaly, rebound, tenderness Rectal exam: PRESENT: deferred Extremities exam: PRESENT: full ROM. ABSENT: calf tenderness, clubbing, pedal edema Neurological exam: PRESENT: alert, awake, oriented to person, oriented to place, oriented to time, oriented to situation, CN II-XII grossly intact. ABSENT: motor sensory deficit Psychiatric exam: PRESENT: appropriate affect, normal mood. ABSENT: homicidal ideation, suicidal ideation Skin exam: PRESENT: dry, intact, warm. ABSENT: cyanosis, rash Results Laboratory Results: 09/15/20 05:13 09/15/20 05:13 09/14/20 09/14/20 09/15/20 05:43 11:35 05:13 WBC 1.1 L* D 3.4 L D RBC 3.66 L Hgb 11.1 L Hct 32.0 L MCV 87 MCH 30.3 MCHC 34.7 RDW 15.6 H Plt Count 165 Seg Neutrophils % Not Reportable Sodium Potassium Chloride Carbon Dioxide Anion Gap BUN Creatinine Est GFR ( Amer) Glucose Calcium Total Bilirubin AST Alkaline Phosphatase Total Protein Albumin Urine Color YELLOW Urine Appearance CLOUDY Urine pH 6.0 Ur Specific [place] 1.019 Urine Protein 100 H Urine Glucose (UA) NEGATIVE Urine Ketones TRACE H Urine Blood NEGATIVE Urine Nitrite NEGATIVE Ur Leukocyte Esterase NEGATIVE Urine WBC (Auto) 4 Urine RBC (Auto) 14 09/15/20 05:13 WBC RBC Hgb Hct MCV MCH MCHC RDW Plt Count Seg Neutrophils % Sodium 133.8 L Potassium 4.4 Chloride 103 Carbon Dioxide 22 Anion Gap 9 BUN 32 H Creatinine 0.85 Est GFR ( Amer) > 60 Glucose 207 H Calcium 8.8 Total Bilirubin 0.4 AST 38 H Alkaline Phosphatase 59 Total Protein 5.5 L Albumin 2.9 L Urine Color Urine Appearance Urine pH Ur Specific [place] Urine Protein Urine Glucose (UA) Urine Ketones Urine Blood Urine Nitrite Ur Leukocyte Esterase Urine WBC (Auto) Urine RBC (Auto) 09/13/20 12:55 Blood Blood Culture (PCR) - Final Staphylococcus Species 09/13/20 09/13/20 09/13/20 12:55 12:55 20:00 Troponin I 0.027 0.035 NT-Pro-B Natriuret Pep 887 H 09/14/20 05:43 Troponin I 0.015 NT-Pro-B Natriuret Pep Impressions: Chest CT 09/13/20 13:31 IMPRESSION: 1. Lung infiltrates are consistent with the clinical history of COVID19 infection. 2. Aneurysmal dilatation ascending aorta. 3. Nonobstructive nephrolithiasis. 4. Sigmoid diverticulosis without suggestion of active diverticulitis. Abdomen/Pelvis CT 09/13/20 13:35 IMPRESSION: 1. Lung infiltrates are consistent with the clinical history of COVID19 infection. 2. Aneurysmal dilatation ascending aorta. 3. Nonobstructive nephrolithiasis. 4. Sigmoid diverticulosis without suggestion of active diverticulitis. Assessment & Plan - Diagnosis (1) Neutropenia associated with infection Is this a current diagnosis for this admission?: Yes Plan: Seems improved related to Covid, should improve as the infection improves. We will follow peripherally. (2) Thrombocytopenia Is this a current diagnosis for this admission?: Yes Plan: Also seems resolved, secondary to infection. - Time Time Spent with patient: 35 or more minutes
[2020-09-15] MEDS: CHOLECALCIFEROL (D3) 1,000 UNIT (25 MCG) TABLET PO SCH (11:21)
[2020-09-15] MEDS: METOPROLOL SUCCINATE 25 MG TAB.SR.24H PO SCH (11:21)
[2020-09-15] MEDS: APIXABAN 5 MG TABLET PO SCH ×2 (11:21→17:21)
[2020-09-15] MEDS: ASCORBIC ACID 500 MG TABLET PO SCH ×2 (11:22→17:21)
[2020-09-15] MEDS: HYDROXYCHLOROQUINE SULFATE 200 MG TABLET PO SCH ×2 (11:22→17:22)
[2020-09-15] MEDS: MEROPENEM 1 GM in NORMAL SALINE 50 ML IV SCH ×2 (11:22→21:18)
[2020-09-15] MEDS: MAGNESIUM OXIDE 400 MG TABLET PO SCH (11:22)
--- NOTE | 2020-09-15 19:18 | PDOC PROGRESS REPORT ---
Subjective Date:: 09/15/20 Reason For Visit: COVID 19 VIRUS INFECTION Physical Exam Vital Signs: Temp Pulse Resp BP Pulse Ox 97.3 F 66 18 143/56 H 97 09/15/20 03:30 09/15/20 14:00 09/15/20 03:30 09/15/20 03:30 09/15/20 03:30 Intake & Output 09/14/20 09/15/20 09/16/20 06:59 06:59 06:59 Intake Total 1560 2060 50 Output Total 850 Balance 1560 1210 50 Weight 58.4 kg 60.1 kg 60.1 kg General appearance: PRESENT: no acute distress Respiratory exam: ABSENT: accessory muscle use, tachypnea Cardiovascular exam: PRESENT: RRR. ABSENT: irregular rhythm, tachycardia Neurological exam: PRESENT: alert, awake Focused psych exam: ABSENT: pressured speech Results Laboratory Results: 09/15/20 05:13 09/15/20 05:13 09/15/20 09/15/20 05:13 05:13 WBC 3.4 L D RBC 3.66 L Hgb 11.1 L Hct 32.0 L MCV 87 MCH 30.3 MCHC 34.7 RDW 15.6 H Plt Count 165 Seg Neutrophils % Not Reportable Sodium 133.8 L Potassium 4.4 Chloride 103 Carbon Dioxide 22 Anion Gap 9 BUN 32 H Creatinine 0.85 Est GFR ( Amer) > 60 Glucose 207 H Calcium 8.8 Total Bilirubin 0.4 AST 38 H Alkaline Phosphatase 59 Total Protein 5.5 L Albumin 2.9 L 09/13/20 12:55 Blood Blood Culture (PCR) - Final Staphylococcus Species 09/13/20 16:00 Throat Throat Culture - Final NORMAL FREDRICK 09/13/20 09/13/20 09/13/20 12:55 12:55 20:00 Troponin I 0.027 0.035 NT-Pro-B Natriuret Pep 887 H 09/14/20 05:43 Troponin I 0.015 NT-Pro-B Natriuret Pep Impressions: Chest CT 09/13/20 13:31 IMPRESSION: 1. Lung infiltrates are consistent with the clinical history of COVID19 infection. 2. Aneurysmal dilatation ascending aorta. 3. Nonobstructive nephrolithiasis. 4. Sigmoid diverticulosis without suggestion of active diverticulitis. Abdomen/Pelvis CT 09/13/20 13:35 IMPRESSION: 1. Lung infiltrates are consistent with the clinical history of COVID19 infection. 2. Aneurysmal dilatation ascending aorta. 3. Nonobstructive nephrolithiasis. 4. Sigmoid diverticulosis without suggestion of active diverticulitis. Assessment and Plan - Diagnosis (1) Acute respiratory failure with hypoxia Is this a current diagnosis for this admission?: Yes (2) Pneumonia due to COVID-19 virus Is this a current diagnosis for this admission?: Yes (3) Ascending aortic aneurysm Is this a current diagnosis for this admission?: Yes (4) Chronic a-fib Is this a current diagnosis for this admission?: Yes (5) Diarrhea due to COVID-19 Is this a current diagnosis for this admission?: Yes (6) HTN (hypertension) Qualifiers: Hypertension type: essential hypertension Qualified Code(s): I10 - Essential (primary) hypertension Is this a current diagnosis for this admission?: Yes (7) Hypothyroidism Qualifiers: Hypothyroidism type: unspecified Qualified Code(s): E03.9 - Hypothyroidism, unspecified Is this a current diagnosis for this admission?: Yes (8) Leukopenia Qualifiers: Leukopenia type: neutropenia Neutropenia type: due to infection Qualified Code(s): D70.3 - Neutropenia due to infection Is this a current diagnosis for this admission?: Yes (9) Rheumatoid arthritis Qualifiers: Rheumatoid arthritis location: multiple sites Rheumatoid factor presence: unspecified presence Qualified Code(s): M06.9 - Rheumatoid arthritis, unspecified Is this a current diagnosis for this admission?: Yes - Plan Summary Summary: Currently still requiring low-flow oxygen. Received ivermectin. On Solu-M edrol. Also notably he is on meropenem. Continue Eliquis and Toprol XL. Continue to monitor labs. Leukopenia shows mild improvement. - Time Time Spent with patient: Less than 15 minutes Anticipated Discharge Disposition: Home, Self Care Anticipated Discharge Timeframe: within 72 hours
[2020-09-15] MEDS: MELATONIN 5 MG TABLET PO SCH (21:19)
[2020-09-16] MEDS: METHYLPREDNISOLONE INJ 40 MG/1 ML SDV IV SCH ×2 (05:57→17:10)
[2020-09-16 08:11] LABS: HEMATOCRIT 34.9 % (36.0-47.0); MEAN CORPUSCULAR HEMOGLOBIN 29.9 pg (27.0-33.4); MEAN CORPUSCULAR HGB CONC 34.5 g/dL (32.0-36.0); MEAN CORPUSCULAR VOLUME 87 fl (80-97); RED BLOOD COUNT 4.01 10^6/uL (3.72-5.28); RED CELL DISTRIBUTION WIDTH 15.7 % (11.5-14.0); WHITE BLOOD COUNT 4.6 10^3/uL (4.0-10.5)
[2020-09-16 08:19] LABS: ALBUMIN 3.1 g/dL (3.5-5.0); ALKALINE PHOSPHATASE 71 U/L (38-126); ANION GAP 5 (5-19); ASPARTATE AMINO TRANSFERASE 42 U/L (14-36); BILIRUBIN,DIRECT 0.2 mg/dL (0.0-0.4); BILIRUBIN,TOTAL 0.4 mg/dL (0.2-1.3); BLOOD UREA NITROGEN 34 mg/dL (7-20); CALCIUM 9.6 mg/dL (8.4-10.2); CARBON DIOXIDE 26 mmol/L (22-30); CHLORIDE 103 mmol/L (98-107); GLUCOSE 171 mg/dL (75-110); POTASSIUM 4.4 mmol/L (3.6-5.0); TOTAL PROTEIN 5.7 g/dL (6.3-8.2)
[2020-09-16 09:02] LABS: ABSOLUTE LYMPHOCYTES# (MANUAL) 0.5 10^3/uL (0.5-4.7); ABSOLUTE MONOCYTES # (MANUAL) 0.3 10^3/uL (0.1-1.4); BAND NEUTROPHILS % (MANUAL) 1 % (3-5); BASOPHILS % (MANUAL) 0 % (0-2); EOSINOPHILS % (MANUAL) 0 % (0-6); LYMPHOCYTES % (MANUAL) 9 % (13-45); MONOCYTES % (MANUAL) 7 % (3-13); PLATELET CLUMPS PRESENT; PLATELET COMMENT ADEQUATE; SEGMENTED NEUTROPHILS % (MAN) 82 % (42-78); TOTAL CELLS COUNTED 100
[2020-09-16 09:03] LABS: ANISOCYTOSIS SLIGHT; BURR CELLS 2+; OVALOCYTES 2+; POIKILOCYTOSIS 2+
[2020-09-16 09:04] LABS: PLATELET COUNT 224 10^3/uL (150-450)
[2020-09-16] MEDS: MEROPENEM 1 GM in NORMAL SALINE 50 ML IV SCH (10:45)
[2020-09-16] MEDS: MAGNESIUM OXIDE 400 MG TABLET PO SCH (10:45)
[2020-09-16] MEDS: APIXABAN 5 MG TABLET PO SCH ×2 (10:46→17:10)
[2020-09-16] MEDS: METOPROLOL SUCCINATE 25 MG TAB.SR.24H PO SCH (10:46)
[2020-09-16] MEDS: CHOLECALCIFEROL (D3) 1,000 UNIT (25 MCG) TABLET PO SCH (10:46)
[2020-09-16] MEDS: ASCORBIC ACID 500 MG TABLET PO SCH ×2 (10:46→17:10)
[2020-09-16] MEDS: HYDROXYCHLOROQUINE SULFATE 200 MG TABLET PO SCH ×2 (10:47→17:11)
--- NOTE | 2020-09-16 10:56 | PDOC PROGRESS REPORT ---
Subjective Date:: 09/16/20 Subjective:: Patient complains of some nausea as well as persistent fatigue and poor appetite . Denies shortness of breath or chest pain this morning though she did have some chest pain when she coughed. Reason For Visit: COVID 19 VIRUS INFECTION Physical Exam Vital Signs: Temp Pulse Resp BP Pulse Ox 97.6 F 61 17 162/51 H 98 09/16/20 07:28 09/16/20 07:28 09/16/20 07:28 09/16/20 07:28 09/16/20 07:28 Intake & Output 09/15/20 09/16/20 09/17/20 06:59 06:59 06:59 Intake Total 2060 840 Output Total 850 890 Balance 1210 -50 Weight 60.1 kg 60.4 kg General appearance: PRESENT: no acute distress, cooperative, hard of hearing, thin Head exam: PRESENT: normocephalic Neck exam: ABSENT: JVD Respiratory exam: PRESENT: clear to auscultation patel, symmetrical, unlabored. ABSENT: accessory muscle use, tachypnea, wheezes Cardiovascular exam: PRESENT: RRR, +S1, +S2. ABSENT: tachycardia GI/Abdominal exam: PRESENT: soft. ABSENT: rebound, rigid, tenderness Neurological exam: PRESENT: alert, awake, oriented to person, oriented to place, oriented to time Psychiatric exam: ABSENT: agitated, anxious Results Laboratory Results: 09/16/20 05:59 09/16/20 05:09 09/16/20 09/16/20 05:09 05:59 WBC 4.6 RBC 4.01 Hgb 12.0 Hct 34.9 L MCV 87 MCH 29.9 MCHC 34.5 RDW 15.7 H Plt Count 224 Seg Neutrophils % Not Reportable Sodium 134.4 L Potassium 4.4 Chloride 103 Carbon Dioxide 26 Anion Gap 5 BUN 34 H Creatinine 0.78 Est GFR ( Amer) > 60 Glucose 171 H Calcium 9.6 Total Bilirubin 0.4 AST 42 H Alkaline Phosphatase 71 Total Protein 5.7 L Albumin 3.1 L 09/13/20 12:55 Blood Blood Culture (PCR) - Final Staphylococcus Species 09/13/20 12:55 Blood Blood Culture - Final Staphylococcus Haemolyticus 09/13/20 16:00 Throat Throat Culture - Final NORMAL FREDRICK 09/13/20 09/13/20 09/13/20 12:55 12:55 20:00 Troponin I 0.027 0.035 NT-Pro-B Natriuret Pep 887 H 09/14/20 05:43 Troponin I 0.015 NT-Pro-B Natriuret Pep Impressions: Chest CT 09/13/20 13:31 IMPRESSION: 1. Lung infiltrates are consistent with the clinical history of COVID19 infe ction. 2. Aneurysmal dilatation ascending aorta. 3. Nonobstructive nephrolithiasis. 4. Sigmoid diverticulosis without suggestion of active diverticulitis. Abdomen/Pelvis CT 09/13/20 13:35 IMPRESSION: 1. Lung infiltrates are consistent with the clinical history of COVID19 infection. 2. Aneurysmal dilatation ascending aorta. 3. Nonobstructive nephrolithiasis. 4. Sigmoid diverticulosis without suggestion of active diverticulitis. Assessment and Plan - Diagnosis (1) Acute respiratory failure with hypoxia Is this a current diagnosis for this admission?: Yes Plan: Secondary to COVID-19 infection. Today patient was actually doing well on room air with adequate SPO2. We will try to maintain patient on room air for today. (2) Pneumonia due to COVID-19 virus Is this a current diagnosis for this admission?: Yes Plan: Continue vitamin and zinc supplements. Continue melatonin. Continue Solu-Medrol. S/p ivermectin x2. (3) Ascending aortic aneurysm Is this a current diagnosis for this admission?: Yes Plan: 4 cm ascending aortic aneurysm. No intervention required currently. Outpatient monitoring. (4) Chronic a-fib Is this a current diagnosis for this admission?: Yes Plan: Continue metoprolol and Eliquis (5) Leukopenia Qualifiers: Leukopenia type: neutropenia Neutropenia type: due to infection Qualified Code(s): D70.3 - Neutropenia due to infection Is this a current diagnosis for this admission?: Yes Plan: I suspect this is secondary to Covid. We will go ahead and discontinue merop enem at this point as no evidence of bacterial infection has been noted. WBC count is normal today. (6) Diarrhea due to COVID-19 Is this a current diagnosis for this admission?: Yes (7) HTN (hypertension) Qualifiers: Hypertension type: essential hypertension Qualified Code(s): I10 - Es sential (primary) hypertension Is this a current diagnosis for this admission?: Yes (8) Hypothyroidism Qualifiers: Hypothyroidism type: unspecified Qualified Code(s): E03.9 - Hypothyroidism, unspecified Is this a current diagnosis for this admission?: Yes (9) Rheumatoid arthritis Qualifiers: Rheumatoid arthritis location: multiple sites Rheumatoid factor presence: unspecified presence Qualified Code(s): M06.9 - Rheumatoid arthritis, unspecified Is this a current diagnosis for this admission?: Yes - Time Time Spent with patient: Less than 15 minutes Anticipated Discharge Disposition: Home, Self Care Anticipated Discharge Timeframe: within 24 hours
[2020-09-16] MEDS: ACETAMINOPHEN 325 MG TABLET PO PRN (10:57)
[2020-09-16] MEDS: ALBUTEROL SULFATE HFA (90 MCG/PUFF) 8 GM MDI IH SCH ×2 (14:03→17:12)
[2020-09-16] MEDS: MELATONIN 5 MG TABLET PO SCH (21:20)
[2020-09-17] MEDS: METHYLPREDNISOLONE INJ 40 MG/1 ML SDV IV SCH ×2 (05:37→17:38)
[2020-09-17 06:21] LABS: ALBUMIN 3.1 g/dL (3.5-5.0); ALKALINE PHOSPHATASE 80 U/L (38-126); ASPARTATE AMINO TRANSFERASE 44 U/L (14-36); BILIRUBIN,DIRECT 0.2 mg/dL (0.0-0.4); BILIRUBIN,TOTAL 0.6 mg/dL (0.2-1.3); BLOOD UREA NITROGEN 35 mg/dL (7-20); CALCIUM 9.8 mg/dL (8.4-10.2); CARBON DIOXIDE 29 mmol/L (22-30); CHLORIDE 101 mmol/L (98-107); GLUCOSE 136 mg/dL (75-110); POTASSIUM 4.2 mmol/L (3.6-5.0); TOTAL PROTEIN 5.7 g/dL (6.3-8.2)
[2020-09-17] MEDS: ACETAMINOPHEN 325 MG TABLET PO PRN (06:29)
[2020-09-17 06:31] LABS: HEMATOCRIT 36.4 % (36.0-47.0); HEMOGLOBIN 12.3 g/dL (12.0-15.5); MEAN CORPUSCULAR HEMOGLOBIN 29.4 pg (27.0-33.4); MEAN CORPUSCULAR HGB CONC 33.9 g/dL (32.0-36.0); MEAN CORPUSCULAR VOLUME 87 fl (80-97); PLATELET COUNT 256 10^3/uL (150-450); RED CELL DISTRIBUTION WIDTH 15.9 % (11.5-14.0)
[2020-09-17 06:59] LABS: ANION GAP 4 (5-19)
[2020-09-17] MEDS: CHOLECALCIFEROL (D3) 1,000 UNIT (25 MCG) TABLET PO SCH (09:49)
[2020-09-17] MEDS: METOPROLOL SUCCINATE 25 MG TAB.SR.24H PO SCH (09:50)
[2020-09-17] MEDS: APIXABAN 5 MG TABLET PO SCH ×2 (09:50→17:38)
[2020-09-17] MEDS: HYDROXYCHLOROQUINE SULFATE 200 MG TABLET PO SCH ×2 (09:51→17:38)
[2020-09-17] MEDS: MAGNESIUM OXIDE 400 MG TABLET PO SCH (09:51)
[2020-09-17] MEDS: ASCORBIC ACID 500 MG TABLET PO SCH ×2 (09:51→17:38)
[2020-09-17] MEDS: ALBUTEROL SULFATE HFA (90 MCG/PUFF) 8 GM MDI IH SCH ×3 (09:52→17:39)
--- NOTE | 2020-09-17 17:42 | PDOC PROGRESS REPORT ---
Subjective Date:: 09/17/20 Subjective:: Feels very fatigued. Nausea vomiting has stopped. Mild dyspnea. Feels very fa tigued Reason For Visit: COVID 19 VIRUS INFECTION Physical Exam Vital Signs: Temp Pulse Resp BP Pulse Ox 98.0 F 71 19 146/80 H 91 L 09/17/20 15:19 09/17/20 15:19 09/17/20 15:19 09/17/20 15:19 09/17/20 15:19 Intake & Output 09/16/20 09/17/20 09/18/20 06:59 06:59 06:59 Intake Total 840 200 590 Output Total 890 200 Balance -50 0 590 Weight 60.4 kg 59.3 kg General appearance: PRESENT: no acute distress, cooperative Neck exam: ABSENT: JVD Respiratory exam: PRESENT: crackles, symmetrical, unlabored. ABSENT: tachypnea, wheezes Cardiovascular exam: PRESENT: RRR, +S1, +S2. ABSENT: tachycardia GI/Abdominal exam: PRESENT: soft. ABSENT: tenderness Neurological exam: PRESENT: alert, awake Results Laboratory Results: 09/17/20 05:42 09/17/20 05:42 09/17/20 09/17/20 05:42 05:42 WBC 6.0 RBC 4.20 Hgb 12.3 Hct 36.4 MCV 87 MCH 29.4 MCHC 33.9 RDW 15.9 H Plt Count 256 Sodium 134.4 L Potassium 4.2 Chloride 101 Carbon Dioxide 29 Anion Gap 4 L BUN 35 H Creatinine 0.81 Est GFR ( Amer) > 60 Glucose 136 H Calcium 9.8 Total Bilirubin 0.6 AST 44 H Alkaline Phosphatase 80 Total Protein 5.7 L Albumin 3.1 L 09/13/20 09/13/20 09/13/20 12:55 12:55 20:00 Troponin I 0.027 0.035 NT-Pro-B Natriuret Pep 887 H 09/14/20 05:43 Troponin I 0.015 NT-Pro-B Natriuret Pep Impressions: Chest CT 09/13/20 13:31 IMPRESSION: 1. Lung infiltrates are consistent with the clinical history of COVID19 infect ion. 2. Aneurysmal dilatation ascending aorta. 3. Nonobstructive nephrolithiasis. 4. Sigmoid diverticulosis without suggestion of active diverticulitis. Abdomen/Pelvis CT 09/13/20 13:35 IMPRESSION: 1. Lung infiltrates are consistent with the clinical history of COVID19 infection. 2. Aneurysmal dilatation ascending aorta. 3. Nonobstructive nephrolithiasis. 4. Sigmoid diverticulosis without suggestion of active diverticulitis. Assessment and Plan - Diagnosis (1) Acute respiratory failure with hypoxia Is this a current diagnosis for this admission?: Yes Plan: Secondary to COVID-19 infection. Patient had to be placed back on 2 L nasal cannula earlier today. We will monitor patient and see if we can de-escalate. She will need oxygen therapy going home. Performed ambulatory pulse ox. (2) Pneumonia due to COVID-19 virus Is this a current diagnosis for this admission?: Yes Plan: Continue vitamin and zinc supplements. Continue melatonin. Continue Solu-Medrol. S/p ivermectin x2. (3) Ascending aortic aneurysm Is this a current diagnosis for this admission?: Yes (4) Chronic a-fib Is this a current diagnosis for this admission?: Yes (5) Leukopenia Qualifiers: Leukopenia type: neutropenia Neutropenia type: due to infection Qualified Code(s): D70.3 - Neutropenia due to infection Is this a current diagnosis for this admission?: Yes (6) Diarrhea due to COVID-19 Is this a current diagnosis for this admission?: Yes (7) HTN (hypertension) Qualifiers: Hypertension type: essential hypertension Qualified Code(s): I10 - Essential (primary) hypertension Is this a current diagnosis for this admission?: Yes (8) Hypothyroidism Qualifiers: Hypothyroidism type: unspecified Qualified Code(s): E03.9 - Hypothyroidism, unspecified Is this a current diagnosis for this admission?: Yes (9) Rheumatoid arthritis Qualifiers: Rheumatoid arthritis location: multiple sites Rheumatoid factor presence: unspecified presence Qualified Code(s): M06.9 - Rheumatoid arthritis, unspecified Is this a current diagnosis for this admission?: Yes - Time Time Spent with patient: Less than 15 minutes Anticipated Discharge Disposition: Home, Self Care Anticipated Discharge Timeframe: within 24 hours
[2020-09-17] MEDS: MELATONIN 5 MG TABLET PO SCH (21:29)
[2020-09-18] MEDS: METHYLPREDNISOLONE INJ 40 MG/1 ML SDV IV SCH (05:55)
[2020-09-18] MEDS: CHOLECALCIFEROL (D3) 1,000 UNIT (25 MCG) TABLET PO SCH (09:40)
[2020-09-18] MEDS: METOPROLOL SUCCINATE 25 MG TAB.SR.24H PO SCH (09:40)
[2020-09-18] MEDS: ALBUTEROL SULFATE HFA (90 MCG/PUFF) 8 GM MDI IH SCH ×3 (09:40→17:22)
[2020-09-18] MEDS: APIXABAN 5 MG TABLET PO SCH ×2 (09:40→17:23)
[2020-09-18] MEDS: ASCORBIC ACID 500 MG TABLET PO SCH ×2 (09:40→17:23)
[2020-09-18] MEDS: MAGNESIUM OXIDE 400 MG TABLET PO SCH (09:40)
--- NOTE | 2020-09-18 13:33 | PDOC DISCHARGE SUMMARY ---
Impression - Admit/DC Date/PCP Admission Date/Primary Care Provider: 09/13/20 16:40 MONTSERRAT PRESTON MD Discharge Date: 09/18/20 - Discharge Diagnosis (1) Acute respiratory failure with hypoxia Is this a current diagnosis for this admission?: Yes (2) Pneumonia due to COVID-19 virus Is this a current diagnosis for this admission?: Yes (3) Ascending aortic aneurysm Is this a current diagnosis for this admission?: Yes (4) Chronic a-fib Is this a current diagnosis for this admission?: Yes (5) Leukopenia Is this a current diagnosis for this admission?: Yes (6) Diarrhea due to COVID-19 Is this a current diagnosis for this admission?: Yes (7) HTN (hypertension) Is this a current diagnosis for this admission?: Yes (8) Hypothyroidism Is this a current diagnosis for this admission?: Yes (9) Rheumatoid arthritis Is this a current diagnosis for this admission?: Yes - Additional Information Resuscitation Status: Full Code Discharge Diet: As Tolerated Discharge Activity: Activity As Tolerated, Balance Activity w/Rest Referrals: MONTSERRAT PRESTON MD [Primary Care Provider] - 09/23/20 10:00 am (The patient will see Dr. Preston assistant front end manager.) Prescriptions: Prednisone [Deltasone 10 mg Tablet] See Protocol PO ASDIR PRN #21 tablet PRN Reason: Home Medications: Apixaban [Eliquis 5 mg Tablet] 5 mg PO BID 08/05/17 Hydroxychloroquine Sulfate [Plaquenil 200 mg Tablet] 200 mg PO BID 08/05/17 Methotrexate Sodium [Methotrexate] 2.5 mg PO ASDIR PRN 08/05/17 Amlodipine Besylate [Norvasc 5 mg Tablet] 5 mg PO DAILY 09/14/20 Dofetilide [Tikosyn] 250 mcg PO BID 09/14/20 Donepezil HCl [Aricept 5 mg Tablet] 5 mg PO DAILY 09/14/20 Prednisone [Deltasone 10 mg Tablet] See Protocol PO ASDIR PRN #21 tablet 09/18/20 History of Present Illiness History of Present Illness: According to admitting provider: SHIMON MURRAY is a 80 year old female, past medical history of rheumatoid arthritis, atrial fibrillation on Eliquis, hypertension, hypothyroidism, who was brought in by EMS due to generalized weakness, diarrhea, desaturation. Patient tested positive for COVID-19 in August 30, 2020 after her tested positive and because of it. She started exhibiting symptoms 3 days after with diarrhea, nausea vomiting, on and off fever. She had very minimal respiratory symptoms. She would have about more than 10 episodes of diarrhea per day. Today she felt very weak, and short of breath that is why EMS was called. Per EMS notes her saturation at home was 90% on room air when she ambulated. Patient denied any melena, or blood in her stool. Hospitalist service was called for further evaluation and management. In the emergency room blood pressure was 144/52, heart rate of 70, temperature 98.6, respiratory rate 20, O2 sat 100% on 2 L of nasal cannula. CBC showed leukopenia WBC count of 2.6, hemoglobin of 11.9, platelet count 170. CMP showed mild hyponatremia 133, potassium 3.9, creatinine 0.74, normal lactic acid, ferritin high at 373, CRP [address] showed lung infiltrates consistent with COVID-19 infection, 4 cm aneurysmal dilatation of the ascending aorta, nonobstructive nephrolithiasis, sigmoid diverticulosis without diverticulitis. Hospital Course Hospital Course: Patient was brought into the hospital for treatment of acute respiratory failure secondary to COVID-19 pneumonia. Patient received treatment with ivermectin x2 doses, Solu-Medrol, melatonin, zinc and vitamin supplements. Patient's hypoxia improved and she was able to be weaned down in terms of a nasal cannula. She is down to 2 L nasal cannula and has been maintaining adequate saturations for the past few days on 2 L. Her lingering hypoxia is likely from damage done from COVID-19 infection to her lungs. Today she was tested to see if she still needed oxygen and she desaturated to 82% on room air. When she was placed on nasal cannula her O2 sats were in the high 90s. She has been very stable for the past several days now so she is ready for discharge. We are setting her up with oxygen tank before she goes. While in the hospital, she did also notably have leukopenia which has resolved at this point. Oncologist evaluated and thinks that her leukopenia is likely secondary to her viral infection. She was also treated for diarrhea. Abdominal CT incidentally picked up on abdominal aortic aneurysm which was only 4 cm so does not require intervention. Patient stable and ready for discharge. Physical Exam Vital Signs: Temp Pulse Resp BP Pulse Ox 97.8 F 63 18 142/60 H 94 09/18/20 12:11 09/18/20 12:11 09/18/20 12:11 09/18/20 12:00 09/18/20 12:11 Intake & Output 09/17/20 09/18/20 09/19/20 06:59 06:59 06:59 Intake Total 200 590 Output Total 200 400 Balance 0 190 Weight 59.3 kg 59.3 kg General appearance: PRESENT: no acute distress, cooperative Eye exam: PRESENT: EOMI Neck exam: ABSENT: JVD Respiratory exam: PRESENT: crackles, unlabored. ABSENT: wheezes GI/Abdominal exam: PRESENT: soft. ABSENT: tenderness Musculoskeletal exam: PRESENT: ambulatory Neurological exam: PRESENT: alert, awake, oriented to person, oriented to place, oriented to time Psychiatric exam: ABSENT: agitated, anxious Results Laboratory Results: WBC 6.0 10^3/uL (4.0-10.5) 09/17/20 05:42 RBC 4.20 10^6/uL (3.72-5.28) 09/17/20 05:42 Hgb 12.3 g/dL (12.0-15.5) 09/17/20 05:42 Hct 36.4 % (36.0-47.0) 09/17/20 05:42 MCV 87 fl (80-97) 09/17/20 05:42 MCH 29.4 pg (27.0-33.4) 09/17/20 05:42 MCHC 33.9 g/dL (32.0-36.0) 09/17/20 05:42 RDW 15.9 % (11.5-14.0) H 09/17/20 05:42 Plt Count 256 10^3/uL (150-450) 09/17/20 05:42 Lymph % (Auto) Not Reportable 09/16/20 05:59 [place] % (Auto) Not Reportable 09/16/20 05:59 Eos % (Auto) Not Reportable 09/16/20 05:59 Baso % (Auto) Not Reportable 09/16/20 05:59 Absolute Neuts (auto) Not Reportable 09/16/20 05:59 Absolute Lymphs (auto) Not Reportable 09/16/20 05:59 Absolute Monos (auto) Not Reportable 09/16/20 05:59 Absolute Eos (auto) Not Reportable 09/16/20 05:59 Absolute Basos (auto) Not Reportable 09/16/20 05:59 Total Counted 100 09/16/20 05:59 Seg Neutrophils % Not Reportable 09/16/20 05:59 Seg Neuts % (Manual) 82 % (42-78) H 09/16/20 05:59 Band Neutrophils % 1 % (3-5) L 09/16/20 05:59 Lymphocytes % (Manual) 9 % (13-45) L 09/16/20 05:59 Atypical Lymphs % 1 % (0) 09/16/20 05:59 Monocytes % (Manual) 7 % (3-13) 09/16/20 05:59 Eosinophils % (Manual) 0 % (0-6) 09/16/20 05:59 Basophils % (Manual) 0 % (0-2) 09/16/20 05:59 Metamyelocytes % 1 % (0-1) 09/13/20 12:55 Abs Neuts (Manual) 3.8 10^3/uL (1.7-8.2) 09/16/20 05:59 Abs Lymphs (Manual) 0.5 10^3/uL (0.5-4.7) 09/16/20 05:59 Abs Monocytes (Manual) 0.3 10^3/uL (0.1-1.4) 09/16/20 05:59 Absolute Eos (Manual) 0.0 10^3/uL (0.0-0.6) 09/16/20 05:59 Abs Basophils (Manual) 0.0 10^3/uL (0.0-0.2) 09/16/20 05:59 Toxic Granulation SLIGHT 09/14/20 05:43 Clumped Platelets PRESENT 09/16/20 05:59 Platelet Comment ADEQUATE 09/16/20 05:59 Poikilocytosis 2+ 09/16/20 05:59 Anisocytosis SLIGHT 09/16/20 05:59 Tear Drop Cells 1+ 09/14/20 05:43 Ovalocytes 2+ 09/16/20 05:59 [place] Cells 2+ 09/16/20 05:59 PT 13.5 SEC (11.4-15.4) 09/13/20 12:55 INR 1.01 09/13/20 12:55 D-Dimer 1.06 ug/mL (0.00-0.50) H 09/13/20 12:55 VBG pH 7.37 (7.30-7.42) 09/13/20 12:55 VBG pCO2 36.6 mmHg (35-63) 09/13/20 12:55 VBG HCO3 20.5 mmol/L (20-32) 09/13/20 12:55 VBG Base Excess -4.2 mmol/L 09/13/20 12:55 Sodium 134.4 mmol/L (137-145) L 09/17/20 05:42 Potassium 4.2 mmol/L (3.6-5.0) 09/17/20 05:42 Chloride 101 mmol/L (98-107) 09/17/20 05:42 Carbon Dioxide 29 mmol/L (22-30) 09/17/20 05:42 Anion Gap 4 (5-19) L 09/17/20 05:42 BUN 35 mg/dL (7-20) H 09/17/20 05:42 Creatinine 0.81 mg/dL (0.52-1.25) 09/17/20 05:42 Est GFR ( Amer) > 60 (>60) 09/17/20 05:42 Est GFR (MDRD) Non-Af > 60 (>60) 09/17/20 05:42 Glucose 136 mg/dL (75-110) H 09/17/20 05:42 POC Glucose 134 mg/dL (70-110) H 09/13/20 14:18 Lactic Acid 0.9 mmol/L (0.7-2.1) 09/13/20 20:00 Calcium 9.8 mg/dL (8.4-10.2) 09/17/20 05:42 Ferritin 373.00 ng/mL (11.1-264.0) H 09/13/20 12:55 Total Bilirubin 0.6 mg/dL (0.2-1.3) 09/17/20 05:42 Direct Bilirubin 0.2 mg/dL (0.0-0.4) 09/17/20 05:42 Neonat Total Bilirubin Not Reportable 09/17/20 05:42 Neonat Direct Bilirubin Not Reportable 09/17/20 05:42 Neonat Indirect Bili Not Reportable 09/17/20 05:42 AST 44 U/L (14-36) H 09/17/20 05:42 ALT 24 U/L (<35) 09/17/20 05:42 Alkaline Phosphatase 80 U/L (38-126) 09/17/20 05:42 Lactate Dehydrogenase 349 U/L (120-246) H 09/13/20 20:00 Troponin I 0.015 ng/mL 09/14/20 05:43 C-Reactive Protein 168.0 mg/L (<10.0) H 09/13/20 12:55 NT-Pro-B Natriuret Pep 887 pg/mL (<450) H 09/13/20 12:55 Total Protein 5.7 g/dL (6.3-8.2) L 09/17/20 05:42 Albumin 3.1 g/dL (3.5-5.0) L 09/17/20 05:42 Lipase 37.2 U/L (23-300) 09/13/20 12:55 Urine Color YELLOW 09/14/20 11:35 Urine Appearance CLOUDY 09/14/20 11:35 Urine pH 6.0 (5.0-9.0) 09/14/20 11:35 Ur Specific Cord 1.019 09/14/20 11:35 Urine Protein 100 mg/dL (NEGATIVE) H 09/14/20 11:35 Urine Glucose (UA) NEGATIVE mg/dL (NEGATIVE) 09/14/20 11:35 Urine Ketones TRACE mg/dL (NEGATIVE) H 09/14/20 11:35 Urine Blood NEGATIVE (NEGATIVE) 09/14/20 11:35 Urine Nitrite NEGATIVE (NEGATIVE) 09/14/20 11:35 Urine Bilirubin NEGATIVE (NEGATIVE) 09/14/20 11:35 Urine Urobilinogen NEGATIVE mg/dL (<2.0) 09/14/20 11:35 Ur Leukocyte Esterase NEGATIVE (NEGATIVE) 09/14/20 11:35 Urine WBC (Auto) 4 /HPF 09/14/20 11:35 Urine RBC (Auto) 14 /HPF 09/14/20 11:35 Urine Bacteria (Auto) TRACE /HPF 09/14/20 11:35 Squamous Epi Cells Auto 23 /HPF 09/14/20 11:35 Urine Mucus (Auto) FEW /LPF 09/14/20 11:35 Urine Ascorbic Acid 40 (NEGATIVE) H 09/14/20 11:35 Influenza A (Rapid) NEGATIVE (NEGATIVE) 09/13/20 16:00 Influenza B (Rapid) NEGATIVE (NEGATIVE) 09/13/20 16:00 Group A Strep Rapid NEGATIVE (NEGATIVE) 09/13/20 16:00 Slides for Path Review PATHOLOGIST REVIEWED 09/14/20 05:43 Blood Type A NEGATIVE 09/13/20 13:16 Antibody Screen NEGATIVE 09/13/20 13:16 09/13/20 09/13/20 09/13/20 12:55 12:55 20:00 Troponin I 0.027 0.035 NT-Pro-B Natriuret Pep 887 H 09/14/20 05:43 Troponin I 0.015 NT-Pro-B Natriuret Pep Impressions: Chest CT 09/13/20 13:31 IMPRESSION: 1. Lung infiltrates are consistent with the clinical history of COVID19 infection. 2. Aneurysmal dilatation ascending aorta. 3. Nonobstructive nephrolithiasis. 4. Sigmoid diverticulosis without suggestion of active diverticulitis. Abdomen/Pelvis CT 09/13/20 13:35 IMPRESSION: 1. Lung infiltrates are consistent with the clinical history of COVID19 infection. 2. Aneurysmal dilatation ascending aorta. 3. Nonobstructive nephrolithiasis. 4. Sigmoid diverticulosis without suggestion of active diverticulitis. Plan Time Spent: Greater than 30 Minutes Stroke Is this a Stroke Patient?: No Acute Heart Failure Is this a Heart Failure Patient?: No
--- NOTE | 2020-09-18 16:05 | Progress Note ---
Provider Note Provider Note: Discharge canceled for today as patient's son is not able to take her back in yet. He states that he would be able to take her back by Monday and that this weekend, patient's stepdaughter can help with keeping an eye on patient. By Monday he and his would be able to provide [id number] care and supervision for patient. They do have a wheelchair at home. States they will need a bedside commode. We will go ahead and plan for potential discharge on Monday and discharge planning working on setting up assistive devices. Physical therapy will be working with patient in the interim.
[2020-09-18] MEDS: MELATONIN 5 MG TABLET PO SCH (22:35)
[2020-09-19] MEDS: APIXABAN 5 MG TABLET PO SCH ×2 (09:33→17:19)
[2020-09-19] MEDS: CHOLECALCIFEROL (D3) 1,000 UNIT (25 MCG) TABLET PO SCH (09:34)
[2020-09-19] MEDS: ALBUTEROL SULFATE HFA (90 MCG/PUFF) 8 GM MDI IH SCH ×3 (09:34→17:19)
[2020-09-19] MEDS: ASCORBIC ACID 500 MG TABLET PO SCH ×2 (09:34→17:19)
[2020-09-19] MEDS: MAGNESIUM OXIDE 400 MG TABLET PO SCH (09:34)
[2020-09-19] MEDS: METOPROLOL SUCCINATE 25 MG TAB.SR.24H PO SCH (09:34)
[2020-09-19] MEDS: PREDNISONE 20 MG TABLET PO SCH (09:34)
[2020-09-19] MEDS: ACETAMINOPHEN 325 MG TABLET PO PRN (09:42)
--- NOTE | 2020-09-19 14:17 | PDOC PROGRESS REPORT ---
Subjective Date:: 09/19/20 Subjective:: Patient is feeling well today. Still planning on discharge tomorrow. She would like to go home and stay with her son. Reason For Visit: COVID 19 VIRUS INFECTION Physical Exam Vital Signs: Temp Pulse Resp BP Pulse Ox 99.3 F 83 19 154/56 H 90 L 09/19/20 11:43 09/19/20 11:43 09/19/20 11:43 09/19/20 11:43 09/19/20 11:43 Intake & Output 09/18/20 09/19/20 09/20/20 06:59 06:59 06:59 Intake Total 590 990 Output Total 400 250 Balance 190 740 Weight 59.3 kg 60.1 kg General appearance: PRESENT: no acute distress, cooperative Respiratory exam: PRESENT: symmetrical, unlabored. ABSENT: accessory muscle use, retraction, tachypnea, wheezes Cardiovascular exam: PRESENT: +S1, +S2. ABSENT: tachycardia GI/Abdominal exam: PRESENT: soft. ABSENT: tenderness Neurological exam: PRESENT: alert, awake Psychiatric exam: ABSENT: agitated, anxious Results Laboratory Results: 09/17/20 05:42 09/17/20 05:42 09/13/20 13:51 Blood Blood Culture - Final NO GROWTH IN 5 DAYS 09/13/20 09/13/20 09/13/20 12:55 12:55 20:00 Troponin I 0.027 0.035 NT-Pro-B Natriuret Pep 887 H 09/14/20 05:43 Troponin I 0.015 NT-Pro-B Natriuret Pep Impressions: Chest CT 09/13/20 13:31 IMPRESSION: 1. Lung infiltrates are consistent with the clinical history of COVID19 infection. 2. Aneurysmal dilatation ascending aorta. 3. Nonobstructive nephrolithiasis. 4. Sigmoid diverticulosis without suggestion of active diverticulitis. Abdomen/Pelvis CT 09/13/20 13:35 IMPRESSION: 1. Lung infiltrates are consistent with the clinical history of COVID19 infection. 2. Aneurysmal dilatation ascending aorta. 3. Nonobstructive nephrolithiasis. 4. Sigmoid diverticulosis without suggestion of active diverticulitis. Assessment and Plan - Diagnosis (1) Acute respiratory failure with hypoxia Is this a current diagnosis for this admission?: Yes (2) Pneumonia due to COVID-19 virus Is this a current diagnosis for this admission?: Yes (3) Ascending aortic aneurysm Is this a current diagnosis for this admission?: Yes (4) Chronic a-fib Is this a current diagnosis for this admission?: Yes (5) Leukopenia Qualifiers: Leukopenia type: neutropenia Neutropenia type: due to infection Qualified Code(s): D70.3 - Neutropenia due to infection Is this a current diagnosis for this admission?: Yes (6) Diarrhea due to COVID-19 Is this a current diagnosis for this admission?: Yes (7) HTN (hypertension) Qualifiers: Hypertension type: essential hypertension Qualified Code(s): I10 - Essential (primary) hypertension Is this a current diagnosis for this admission?: Yes (8) Hypothyroidism Qualifiers: Hypothyroidism type: unspecified Qualified Code(s): E03.9 - Hypothyroidism, unspecified Is this a current diagnosis for this admission?: Yes (9) Rheumatoid arthritis Qualifiers: Rheumatoid arthritis location: multiple sites Rheumatoid factor presence: unspecified presence Qualified Code(s): M06.9 - Rheumatoid arthritis, unspecified Is this a current diagnosis for this admission?: Yes - Plan Summary Summary: Patient is currently stable. She still hypoxic requiring nasal cannula. SPO2 remains in the low 90%. We will give her an incentive spirometer. Still planning on discharge today. She will undergo work with physical therapy. She has wheelchair at home as well as a rolling walker with seat. - Time Time Spent with patient: Less than 15 minutes Anticipated Discharge Disposition: Home with Home Health Anticipated Discharge Timeframe: within 24 hours
[2020-09-19] MEDS: MELATONIN 5 MG TABLET PO SCH (21:52)
[2020-09-20 07:05] LABS: ARTERIAL BLOOD BASE EXCESS 6.1 mmol/L; ARTERIAL BLOOD H2CO3 1.14 mmol/L (1.05-1.35); ARTERIAL BLOOD HCO3 29.4 mmol/L (20-24); ARTERIAL BLOOD O2 SATURATION 93.8 % (94-98); ARTERIAL BLOOD PCO2 37.8 mmHg (35-45); ARTERIAL BLOOD PH 7.51 (7.35-7.45); ARTERIAL BLOOD TOTAL CO2 30.6 mmol/L (21-25)
[2020-09-20 07:13] LABS: ARTERIAL BLOOD FIO2 4 L
[2020-09-20] MEDS ORDERED: AMLODIPINE BESYLATE 10 MG TABLET PO ONE (07:38)
[2020-09-20] MEDS: METOPROLOL SUCCINATE 25 MG TAB.SR.24H PO SCH (10:16)
[2020-09-20] MEDS: MAGNESIUM OXIDE 400 MG TABLET PO SCH (10:17)
[2020-09-20] MEDS: APIXABAN 5 MG TABLET PO SCH ×2 (10:17→17:54)
[2020-09-20] MEDS: ALBUTEROL SULFATE HFA (90 MCG/PUFF) 8 GM MDI IH SCH ×3 (10:18→17:54)
[2020-09-20] MEDS: ASCORBIC ACID 500 MG TABLET PO SCH ×2 (10:18→17:54)
[2020-09-20] MEDS: PREDNISONE 20 MG TABLET PO SCH (10:18)
[2020-09-20] MEDS: CHOLECALCIFEROL (D3) 1,000 UNIT (25 MCG) TABLET PO SCH (10:18)
[2020-09-20 12:37] LABS: ARTERIAL BLOOD BASE EXCESS 6.9 mmol/L; ARTERIAL BLOOD H2CO3 0.99 mmol/L (1.05-1.35); ARTERIAL BLOOD O2 SATURATION 82.6 % (94-98); ARTERIAL BLOOD PCO2 32.8 mmHg (35-45); ARTERIAL BLOOD PH 7.56 (7.35-7.45)
[2020-09-20 12:38] LABS: ARTERIAL BLOOD FIO2 2L
[2020-09-20 12:39] LABS: ARTERIAL BLOOD PO2 39.7 mmHg (80-100)
--- NOTE | 2020-09-20 12:57 | PDOC PROGRESS REPORT ---
Subjective Date:: 09/20/20 Subjective:: Patient is requiring 4 L today. She still gets quite out of breath when she amb ulates to the bedside commode. She denies any chest pain. She is requiring 4 L today and actually earlier was on 6 L, I will cancel plans for discharge for today. Reason For Visit: COVID 19 VIRUS INFECTION Physical Exam Vital Signs: Temp Pulse Resp BP Pulse Ox 97.2 F 101 H 19 150/66 H 82 L 09/20/20 11:50 09/20/20 11:50 09/20/20 11:50 09/20/20 11:50 09/20/20 11:50 Intake & Output 09/19/20 09/20/20 09/21/20 06:59 06:59 06:59 Intake Total 990 320 Output Total 250 700 Balance 740 -380 Weight 60.1 kg 57.8 kg General appearance: PRESENT: no acute distress, cooperative Neck exam: ABSENT: JVD Respiratory exam: PRESENT: crackles, unlabored. ABSENT: tachypnea, wheezes Cardiovascular exam: PRESENT: RRR, +S1, +S2. ABSENT: tachycardia GI/Abdominal exam: PRESENT: soft. ABSENT: rebound, rigid, tenderness Neurological exam: PRESENT: alert, awake Results Laboratory Results: 09/17/20 05:42 09/17/20 05:42 09/20/20 09/20/20 06:25 11:45 Carbonic Acid 1.14 0.99 L HCO3/H2CO3 Ratio 25:1 29:1 ABG pH 7.51 H 7.56 H ABG pCO2 37.8 32.8 L ABG pO2 62.0 L 39.7 L* ABG HCO3 29.4 H 29.0 H ABG O2 Saturation 93.8 L 82.6 L ABG Base Excess 6.1 6.9 FiO2 4 L 2L 09/13/20 09/13/20 09/13/20 12:55 12:55 20:00 Troponin I 0.027 0.035 NT-Pro-B Natriuret Pep 887 H 09/14/20 05:43 Troponin I 0.015 NT-Pro-B Natriuret Pep Impressions: Chest CT 09/13/20 13:31 IMPRESSION: 1. Lung infiltrates are consistent with the clinical history of COVID19 infection. 2. Aneurysmal dilatation ascending aorta. 3. Nonobstructive nephrolithiasis. 4. Sigmoid diverticulosis without suggestion of active diverticulitis. Abdomen/Pelvis CT 09/13/20 13:35 IMPRESSION: 1. Lung infiltrates are consistent with the clinical history of COVID19 infection. 2. Aneurysmal dilatation ascending aorta. 3. Nonobstructive nephrolithiasis. 4. Sigmoid diverticulosis without suggestion of active diverticulitis. Assessment and Plan - Diagnosis (1) Acute respiratory failure with hypoxia Is this a current diagnosis for this admission?: Yes (2) Pneumonia due to COVID-19 virus Is this a current diagnosis for this admission?: Yes (3) Ascending aortic aneurysm Is this a current diagnosis for this admission?: Yes (4) Chronic a-fib Is this a current diagnosis for this admission?: Yes (5) Leukopenia Qualifiers: Leukopenia type: neutropenia Neutropenia type: due to infection Qualified Code(s): D70.3 - Neutropenia due to infection Is this a current diagnosis for this admission?: Yes (6) Diarrhea due to COVID-19 Is this a current diagnosis for this admission?: Yes (7) HTN (hypertension) Qualifiers: Hypertension type: essential hypertension Qualified Code(s): I10 - Essential (primary) hypertension Is this a current diagnosis for this admission?: Yes (8) Hypothyroidism Qualifiers: Hypothyroidism type: unspecified Qualified Code(s): E03.9 - Hypothyroidism, unspecified Is this a current diagnosis for this admission?: Yes (9) Rheumatoid arthritis Qualifiers: Rheumatoid arthritis location: multiple sites Rheumatoid factor presence: unspecified presence Qualified Code(s): M06.9 - Rheumatoid arthritis, unspecified Is this a current diagnosis for this admission?: Yes - Plan Summary Summary: She remained stable. However oxygen requirements have gone up slowly since discontinuation of her Solu-Medrol. I will discontinue this prednisone and put her back on Solu-Medrol. She is on 4 L nasal cannula today with PO2 on ABG of 62. We did decrease her to 2 L nasal cannula and obtained an ABG which showed a PO2 in the 30s. As such I will go ahead and cancel discharge. Even though I do not believe that her oxygen is going to normalize, I would at least like to see it remained stable on 4 L for a couple of days before discharging her. - Time Time Spent with patient: 15-24 minutes Anticipated Discharge Disposition: Home with Home Health Anticipated Discharge Timeframe: within 48 hours
[2020-09-20] MEDS: METHYLPREDNISOLONE INJ 40 MG/1 ML SDV IV SCH (21:31)
[2020-09-20] MEDS: MELATONIN 5 MG TABLET PO SCH (21:31)
[2020-09-21] MEDS ORDERED: AMLODIPINE BESYLATE 10 MG TABLET PO ONE (04:00)
[2020-09-21 06:15] LABS: C-REACTIVE PROTEIN 127.5 mg/L (<10.0)
[2020-09-21 08:11] LABS: BLOOD UREA NITROGEN 25 mg/dL (7-20); CALCIUM 9.3 mg/dL (8.4-10.2); CHLORIDE 99 mmol/L (98-107); GLUCOSE 184 mg/dL (75-110); POTASSIUM 4.4 mmol/L (3.6-5.0)
[2020-09-21 08:17] LABS: ANION GAP 7 (5-19); CARBON DIOXIDE 30 mmol/L (22-30)
[2020-09-21] MEDS ORDERED: AMLODIPINE BESYLATE 10 MG TABLET PO SCH ×3 (10:00→14:00)
[2020-09-21] MEDS: MAGNESIUM OXIDE 400 MG TABLET PO SCH (10:24)
[2020-09-21] MEDS: METOPROLOL SUCCINATE 25 MG TAB.SR.24H PO SCH (10:24)
[2020-09-21] MEDS: APIXABAN 5 MG TABLET PO SCH ×2 (10:24→17:19)
[2020-09-21] MEDS: LOSARTAN POTASSIUM 50 MG TABLET PO SCH ×2 (10:24→21:35)
[2020-09-21] MEDS: METHYLPREDNISOLONE INJ 40 MG/1 ML SDV IV SCH ×2 (10:24→21:37)
[2020-09-21] MEDS: ASCORBIC ACID 500 MG TABLET PO SCH ×2 (10:24→17:19)
[2020-09-21] MEDS: ALBUTEROL SULFATE HFA (90 MCG/PUFF) 8 GM MDI IH SCH ×3 (10:25→17:19)
[2020-09-21] MEDS: CHOLECALCIFEROL (D3) 1,000 UNIT (25 MCG) TABLET PO SCH (10:25)
[2020-09-21] MEDS: DOFETILIDE 125 MCG CAPSULE PO SCH ×2 (10:25→21:37)
--- NOTE | 2020-09-21 13:27 | PDOC PROGRESS REPORT ---
Subjective Date:: 09/21/20 Subjective:: Still feels quite short of breath when she ambulates even just to the bedside co mmode. Reason For Visit: COVID 19 VIRUS INFECTION Physical Exam Vital Signs: Temp Pulse Resp BP Pulse Ox 97.8 F 63 19 143/47 H 89 L 09/21/20 11:32 09/21/20 11:32 09/21/20 11:32 09/21/20 11:32 09/21/20 11:32 Intake & Output 09/20/20 09/21/20 09/22/20 06:59 06:59 06:59 Intake Total 320 150 Output Total 700 250 Balance -380 -250 150 Weight 57.8 kg 59.8 kg General appearance: PRESENT: no acute distress, cooperative Neck exam: ABSENT: JVD Respiratory exam: PRESENT: crackles, unlabored. ABSENT: tachypnea, wheezes Cardiovascular exam: PRESENT: +S1, +S2. ABSENT: tachycardia GI/Abdominal exam: PRESENT: soft. ABSENT: tenderness Neurological exam: PRESENT: alert, awake Psychiatric exam: ABSENT: agitated, anxious Results Laboratory Results: 09/17/20 05:42 09/21/20 04:44 09/21/20 09/21/20 04:44 04:44 Sodium 135.6 L Potassium 4.4 Chloride 99 Carbon Dioxide 30 Anion Gap 7 BUN 25 H Creatinine 0.53 Est GFR ( Amer) > 60 Glucose 184 H Calcium 9.3 Ferritin 607.00 H C-Reactive Protein 127.5 H 09/13/20 09/13/20 09/13/20 12:55 12:55 20:00 Troponin I 0.027 0.035 NT-Pro-B Natriuret Pep 887 H 09/14/20 05:43 Troponin I 0.015 NT-Pro-B Natriuret Pep Impressions: Chest CT 09/13/20 13:31 IMPRESSION: 1. Lung infiltrates are consistent with the clinical history of COVID19 infection. 2. Aneurysmal dilatation ascending aorta. 3. Nonobstructive nephrolithiasis. 4. Sigmoid diverticulosis without suggestion of active diverticulitis. Abdomen/Pelvis CT 09/13/20 13:35 IMPRESSION: 1. Lung infiltrates are consistent with the clinical history of COVID19 infection. 2. Aneurysmal dilatation ascending aorta. 3. Nonobstructive nephrolithiasis. 4. Sigmoid diverticulosis without suggestion of active diverticulitis. Assessment and Plan - Diagnosis (1) Acute respiratory failure with hypoxia Is this a current diagnosis for this admission?: Yes (2) Pneumonia due to COVID-19 virus Is this a current diagnosis for this admission?: Yes (3) Ascending aortic aneurysm Is this a current diagnosis for this admission?: Yes (4) Chronic a-fib Is this a current diagnosis for this admission?: Yes (5) Leukopenia Qualifiers: Leukopenia type: neutropenia Neutropenia type: due to infection Qualified Code(s): D70.3 - Neutropenia due to infection Is this a current diagnosis for this admission?: Yes (6) Diarrhea due to COVID-19 Is this a current diagnosis for this admission?: Yes (7) HTN (hypertension) Qualifiers: Hypertension type: essential hypertension Qualified Code(s): I10 - Essential (primary) hypertension Is this a current diagnosis for this admission?: Yes (8) Hypothyroidism Qualifiers: Hypothyroidism type: unspecified Qualified Code(s): E03.9 - Hypothyroidism, unspecified Is this a current diagnosis for this admission?: Yes (9) Rheumatoid arthritis Qualifiers: Rheumatoid arthritis location: multiple sites Rheumatoid factor presence: unspecified presence Qualified Code(s): M06.9 - Rheumatoid arthritis, unspecified Is this a current diagnosis for this admission?: Yes - Plan Summary Summary: 09/20 She remained stable. However oxygen requirements have gone up slowly since discontinuation of her Solu-Medrol. I will discontinue this prednisone and put her back on Solu-Medrol. She is on 4 L nasal cannula today with PO2 on ABG of 62. We did decrease her to 2 L nasal cannula and obtained an ABG which showed a PO2 in the 30s. As such I will go ahead and cancel discharge. Even though I do not believe that her oxygen is going to normalize, I would at least like to see it remained stable on 4 L for a couple of days before discharging her. 09/21 She had initially been set up to go home on 2 L nasal cannula. However, given the recent increase oxygen requirements, I would like to see her SPO2 remain stable 4 L nasal cannula seems to be her new requirement for another 1 or 2 days before discharging her. Her blood pressure has been running quite high which I suspect may be, in part, due to the steroids she is receiving. I have added losartan. She will be living with her son and his upon discharge. - Time Anticipated Discharge Disposition: Home with Home Health Anticipated Discharge Timeframe: within 36 hours
[2020-09-21] MEDS ORDERED: NORMAL SALINE 500 ML IV PRN (15:11)
--- NOTE | 2020-09-21 15:23 | RADIOLOGY REPORT (SQ) ---
EXAM DESCRIPTION: CHEST 2 VIEWS IMAGES COMPLETED DATE/TIME: 09/21/2020 3:15 pm REASON FOR STUDY: increased hypoxia. recent covid. COMPARISON: AP view of the chest from 09/13/2020. EXAM PARAMETERS: NUMBER OF VIEWS: Two views. TECHNIQUE: PA and lateral views of the chest were obtained. RADIATION DOSE: NA LIMITATIONS: None. FINDINGS: LUNGS AND PLEURA: Increased bilateral (left greater than right) patchy parenchymal opaciti es in a peripheral distribution. The costophrenic sulci are blunted. There is no pneumothorax. MEDIASTINUM AND HILAR STRUCTURES: No mediastinal or hilar contour abnormality. HEART AND VASCULAR STRUCTURES: The cardiac silhouette and pulmonary vasculature are within normal gan its. BONES: No acute findings. HARDWARE: None in the chest. OTHER: No other finding. IMPRESSION: Increased bilateral (left greater than right) patchy parenchymal opacities in a peripher al distribution. TECHNICAL DOCUMENTATION: JOB ID: [id number] [employer]- All Rights Reserved Reading location - IP/workstation name: [email or web address]
--- NOTE | 2020-09-21 17:40 | EKG REPORT ---
SEVERITY:- ABNORMAL ECG - SINUS RHYTHM LVH WITH SECONDARY REPOLARIZATION ABNORMALITY NONSPECIFIC INFERIOR ST-T CHANGES. : Confirmed by: Tristian Watson MD 21-Sep-2020 17:39:55
[2020-09-21] MEDS: MELATONIN 5 MG TABLET PO SCH (21:35)
[2020-09-22] MEDS: METOPROLOL SUCCINATE 25 MG TAB.SR.24H PO SCH (10:21)
[2020-09-22] MEDS: APIXABAN 5 MG TABLET PO SCH ×2 (10:22→18:09)
[2020-09-22] MEDS: ALBUTEROL SULFATE HFA (90 MCG/PUFF) 8 GM MDI IH SCH ×3 (10:22→18:09)
[2020-09-22] MEDS: DOFETILIDE 125 MCG CAPSULE PO SCH ×2 (10:22→22:22)
[2020-09-22] MEDS: MAGNESIUM OXIDE 400 MG TABLET PO SCH (10:22)
[2020-09-22] MEDS: CHOLECALCIFEROL (D3) 1,000 UNIT (25 MCG) TABLET PO SCH (10:22)
[2020-09-22] MEDS: ASCORBIC ACID 500 MG TABLET PO SCH ×2 (10:22→18:09)
[2020-09-22] MEDS: METHYLPREDNISOLONE INJ 40 MG/1 ML SDV IV SCH ×2 (10:22→22:21)
[2020-09-22] MEDS: LOSARTAN POTASSIUM 50 MG TABLET PO SCH ×2 (10:22→22:22)
[2020-09-22] MEDS: AMLODIPINE BESYLATE 10 MG TABLET PO SCH (14:53)
[2020-09-22] MEDS ORDERED: PROMETHAZINE HCL 25 MG TABLET PO PRN (16:12)
--- NOTE | 2020-09-22 16:17 | PDOC PROGRESS REPORT ---
Subjective Date:: 09/22/20 Subjective:: Patient is resting comfortably in bed. Evidently she had a hypotensive episode yesterday but has been feeling much better today. She is hopeful for discharge home tomorrow. Portable oxygen tank is already delivered and is sitting in the room. Reason For Visit: COVID 19 VIRUS INFECTION Physical Exam Vital Signs: Temp Pulse Resp BP Pulse Ox 97.6 F 66 16 151/49 H 97 09/22/20 12:40 09/22/20 14:00 09/22/20 12:40 09/22/20 12:40 09/22/20 12:40 Intake & Output 09/21/20 09/22/20 09/23/20 06:59 06:59 06:59 Intake Total 1600 Output Total 250 500 Balance -250 1100 Weight 59.8 kg 58.5 kg General appearance: PRESENT: no acute distress, cooperative, well-developed Head exam: PRESENT: atraumatic, normocephalic Ear exam: PRESENT: normal external ear exam. ABSENT: bleeding, drainage Mouth exam: PRESENT: moist, tongue midline Respiratory exam: PRESENT: rales - Scattered faint rales, symmetrical, unlabored. ABSENT: accessory muscle use, rhonchi, tachypnea, wheezes Cardiovascular exam: PRESENT: RRR, +S1, +S2, systolic murmur - 3/6, other - Possible occasional irregular beat. ABSENT: bradycardia, diastolic murmur, irregular rhythm GI/Abdominal exam: PRESENT: normal bowel sounds, soft. ABSENT: distended, guarding, tenderness Rectal exam: PRESENT: deferred Extremities exam: ABSENT: calf tenderness, pedal edema Musculoskeletal exam: PRESENT: ambulatory - With walker, normal inspection. ABSENT: deformity, dislocation Neurological exam: PRESENT: alert, awake, oriented to person, oriented to place, oriented to time, oriented to situation, CN II-XII grossly intact. ABSENT: altered Psychiatric exam: PRESENT: appropriate affect. ABSENT: agitated, anxious Focused psych exam: ABSENT: delusional, paranoid, restlessness Skin exam: PRESENT: dry, normal color, warm. ABSENT: rash Results Laboratory Results: 09/17/20 05:42 09/21/20 04:44 09/13/20 09/13/20 09/13/20 12:55 12:55 20:00 Troponin I 0.027 0.035 NT-Pro-B Natriuret Pep 887 H 09/14/20 05:43 Troponin I 0.015 NT-Pro-B Natriuret Pep Impressions: Chest CT 09/13/20 13:31 IMPRESSION: 1. Lung infiltrates are consistent with the clinical history of COVID19 infection. 2. Aneurysmal dilatation ascending aorta. 3. Nonobstructive nephrolithiasis. 4. Sigmoid diverticulosis without suggestion of active diverticulitis. Abdomen/Pelvis CT 09/13/20 13:35 IMPRESSION: 1. Lung infiltrates are consistent with the clinical history of COVID19 infection. 2. Aneurysmal dilatation ascending aorta. 3. Nonobstructive nephrolithiasis. 4. Sigmoid diverticulosis without suggestion of active diverticulitis. Chest X-Ray 09/21/20 00:00 IMPRESSION: Increased bilateral (left greater than right) patchy parenchymal opacities in a peripheral distribution. Assessment and Plan - Diagnosis (1) Acute respiratory failure with hypoxia Is this a current diagnosis for this admission?: Yes (2) Pneumonia due to COVID-19 virus Is this a current diagnosis for this admission?: Yes (3) Ascending aortic aneurysm Is this a current diagnosis for this admission?: Yes (4) Chronic a-fib Is this a current diagnosis for this admission?: Yes (5) Leukopenia Qualifiers: Leukopenia type: neutropenia Neutropenia type: due to infection Qualified Code(s): D70.3 - Neutropenia due to infection Is this a current diagnosis for this admission?: Yes (6) Diarrhea due to COVID-19 Is this a current diagnosis for this admission?: Yes (7) HTN (hypertension) Qualifiers: Hypertension type: essential hypertension Qualified Code(s): I10 - Essential (primary) hypertension Is this a current diagnosis for this admission?: Yes (8) Hypothyroidism Qualifiers: Hypothyroidism type: unspecified Qualified Code(s): E03.9 - Hypothyroidism, unspecified Is this a current diagnosis for this admission?: Yes (9) Rheumatoid arthritis Qualifiers: Rheumatoid arthritis location: multiple sites Rheumatoid factor presence: unspecified presence Qualified Code(s): M06.9 - Rheumatoid arthritis, unspecified Is this a current diagnosis for this admission?: Yes - Plan Summary Summary: 09/20 She remained stable. However oxygen requirements have gone up slowly since discontinuation of her Solu-Medrol. I will discontinue this prednisone and put her back on Solu-Medrol. She is on 4 L nasal cannula today with PO2 on ABG of 62. We did decrease her to 2 L nasal cannula and obtained an ABG which showed a PO2 in the 30s. As such I will go ahead and cancel discharge. Even though I do not believe that her oxygen is going to normalize, I would at least like to see it remained stable on 4 L for a couple of days before discharging her. 09/21 She had initially been set up to go home on 2 L nasal cannula. However, given the recent increase oxygen requirements, I would like to see her SPO2 remain stable 4 L nasal cannula seems to be her new requirement for another 1 or 2 days before discharging her. Her blood pressure has been running quite high which I suspect may be, in part, due to the steroids she is receiving. I have added losartan. She will be living with her son and his upon discharge. 09/22/2020 Covid pneumonia-nasal cannula is at 5 L at this time. She does have home oxygen in place. 3 to 4 L would be a better discharge flow. Chest x-ray yesterday se em to indicate increased airspace disease peripherally. Blood pressures are improved somewhat with losartan. Tikosyn for her longstanding atrial fibrillation. She is currently in sinus rhythm. QT is slightly longer on yesterday's EKG. Will check EKG tomorrow as well. Discontinued Zofran. Leukopenia-white blood cell count has normalized. Recheck labs tomorrow. Anticipate discharge home tomorrow. There will be multiple family members present - Time Time Spent with patient: 15-24 minutes Medications reviewed and adjusted accordingly: Yes Anticipated Discharge Disposition: Home with Home Health Anticipated Discharge Timeframe: within 24 hours
[2020-09-22] MEDS: MELATONIN 5 MG TABLET PO SCH (22:21)
[2020-09-23 05:30] LABS: HEMATOCRIT 32.6 % (36.0-47.0); HEMOGLOBIN 10.8 g/dL (12.0-15.5); MEAN CORPUSCULAR HEMOGLOBIN 28.9 pg (27.0-33.4); MEAN CORPUSCULAR HGB CONC 33.1 g/dL (32.0-36.0); MEAN CORPUSCULAR VOLUME 87 fl (80-97); PLATELET COUNT 234 10^3/uL (150-450); RED BLOOD COUNT 3.73 10^6/uL (3.72-5.28); WHITE BLOOD COUNT 5.6 10^3/uL (4.0-10.5)
[2020-09-23 05:52] LABS: ALBUMIN 2.4 g/dL (3.5-5.0); ALKALINE PHOSPHATASE 69 U/L (38-126); ASPARTATE AMINO TRANSFERASE 29 U/L (14-36); BILIRUBIN,DIRECT 0.3 mg/dL (0.0-0.4); BILIRUBIN,TOTAL 0.8 mg/dL (0.2-1.3); BLOOD UREA NITROGEN 41 mg/dL (7-20); CALCIUM 9.1 mg/dL (8.4-10.2); CARBON DIOXIDE 28 mmol/L (22-30); GLUCOSE 252 mg/dL (75-110); POTASSIUM 4.9 mmol/L (3.6-5.0); TOTAL PROTEIN 4.5 g/dL (6.3-8.2)
[2020-09-23 05:57] LABS: ANION GAP 6 (5-19); CHLORIDE 99 mmol/L (98-107)
[2020-09-23 06:04] LABS: ABSOLUTE LYMPHOCYTES# (MANUAL) 0.2 10^3/uL (0.5-4.7); ABSOLUTE MONOCYTES # (MANUAL) 0.7 10^3/uL (0.1-1.4); ANISOCYTOSIS 1+; BAND NEUTROPHILS % (MANUAL) 2 % (3-5); BASOPHILS % (MANUAL) 0 % (0-2); EOSINOPHILS % (MANUAL) 0 % (0-6); LYMPHOCYTES % (MANUAL) 3 % (13-45); MONOCYTES % (MANUAL) 13 % (3-13); PLATELET COMMENT ADEQUATE; SEGMENTED NEUTROPHILS % (MAN) 82 % (42-78); TOTAL CELLS COUNTED 100
--- NOTE | 2020-09-23 07:22 | EKG REPORT ---
SEVERITY:- ABNORMAL ECG - SINUS RHYTHM LEFT VENTRICULAR HYPERTROPHY NONSPECIFIC T ABNORMALITIES, INFERIOR LEADS : Confirmed by: Tristian Watson MD 23-Sep-2020 07:21:52
[2020-09-23] MEDS ORDERED: DONEPEZIL HCL 5 MG TABLET PO SCH (10:00)
[2020-09-23] MEDS: APIXABAN 5 MG TABLET PO SCH (10:39)
[2020-09-23] MEDS: CHOLECALCIFEROL (D3) 1,000 UNIT (25 MCG) TABLET PO SCH (10:39)
[2020-09-23] MEDS: MAGNESIUM OXIDE 400 MG TABLET PO SCH (10:39)
[2020-09-23] MEDS: ASCORBIC ACID 500 MG TABLET PO SCH (10:40)
[2020-09-23] MEDS: DOFETILIDE 125 MCG CAPSULE PO SCH (10:40)
[2020-09-23] MEDS: METHYLPREDNISOLONE INJ 40 MG/1 ML SDV IV SCH (10:40)
[2020-09-23] MEDS: LOSARTAN POTASSIUM 50 MG TABLET PO SCH ×2 (10:41→11:40)
[2020-09-23] MEDS: ALBUTEROL SULFATE HFA (90 MCG/PUFF) 8 GM MDI IH SCH ×2 (10:42→14:57)
[2020-09-23] MEDS: METOPROLOL SUCCINATE 25 MG TAB.SR.24H PO SCH ×2 (10:42→11:41)
--- NOTE | 2020-09-23 13:01 | PDOC DISCHARGE SUMMARY ---
Impression - Admit/DC Date/PCP Admission Date/Primary Care Provider: 09/13/20 16:40 MONTSERRAT PRESTON MD Discharge Date: 09/23/20 - Discharge Diagnosis (1) Acute respiratory failure with hypoxia Is this a current diagnosis for this admission?: Yes (2) Pneumonia due to COVID-19 virus Is this a current diagnosis for this admission?: Yes (3) Ascending aortic aneurysm Is this a current diagnosis for this admission?: Yes (4) Chronic a-fib Is this a current diagnosis for this admission?: Yes (5) Leukopenia Is this a current diagnosis for this admission?: Yes (6) Diarrhea due to COVID-19 Is this a current diagnosis for this admission?: Yes (7) HTN (hypertension) Is this a current diagnosis for this admission?: Yes (8) Hypothyroidism Is this a current diagnosis for this admission?: Yes (9) Rheumatoid arthritis Is this a current diagnosis for this admission?: Yes - Assessment Summary: (1) Acute respiratory failure with hypoxia Is this a current diagnosis for this admission?: Yes Plan: Secondary to COVID-19 infection. Patient had to be placed back on 2 L nasal cannula earlier today. We will monitor patient and see if we can de-escalate. She will need oxygen therapy going home. Performed ambulatory pulse ox. (2) Pneumonia due to COVID-19 virus Is this a current diagnosis for this admission?: Yes Plan: Continue vitamin and zinc supplements. Continue melatonin. Continue Solu-Medrol. S/p ivermectin x2. (3) Ascending aortic aneurysm Is this a current diagnosis for this admission?: Yes (4) Chronic a-fib Is this a current diagnosis for this admission?: Yes (5) Leukopenia Qualifiers: Leukopenia type: neutropenia Neutropenia type: due to infection Qualified Code(s): D70.3 - Neutropenia due to infection Is this a current diagnosis for this admission?: Yes (6) Diarrhea due to COVID-19 Is this a current diagnosis for this admission?: Yes (7) HTN (hypertension) Qualifiers: Hypertension type: essential hypertension Qualified Code(s): I10 - Essential (primary) hypertension Is this a current diagnosis for this admission?: Yes (8) Hypothyroidism Qualifiers: Hypothyroidism type: unspecified Qualified Code(s): E03.9 - Hypothyroidism, unspecified Is this a current diagnosis for this admission?: Yes (9) Rheumatoid arthritis Qualifiers: Rheumatoid arthritis location: multiple sites Rheumatoid factor presence: unspecified presence Qualified Code(s): M06.9 - Rheumatoid arthritis, unspecified Is this a current diagnosis for this admission?: Yes 09/20 She remained stable. However oxygen requirements have gone up slowly since discontinuation of her Solu-Medrol. I will discontinue this prednisone and put her back on Solu-Medrol. She is on 4 L nasal cannula today with PO2 on ABG of 62. We did decrease her to 2 L nasal cannula and obtained an ABG which showed a PO2 in the 30s. As such I will go ahead and cancel discharge. Even though I do not believe that her oxygen is going to normalize, I would at least like to see it remained stable on 4 L for a couple of days before discharging her. 09/21 She had initially been set up to go home on 2 L nasal cannula. However, given the recent increase oxygen requirements, I would like to see her SPO2 remain stable 4 L nasal cannula seems to be her new requirement for another 1 or 2 days before discharging her. Her blood pressure has been running quite high which I suspect may be, in part, due to the steroids she is receiving. I have added losartan. She will be living with her son and his upon discharge. 09/22/2020 Covid pneumonia-nasal cannula is at 5 L at this time. She does have home oxygen in place. 3 to 4 L would be a better discharge flow. Chest x-ray yesterday seem to indicate increased airspace disease peripherally. Blood pressures are improved somewhat with losartan. Tikosyn for her longstanding atrial fibrillation. She is currently in sinus rhythm. QT is slightly longer on yesterday's EKG. Will check EKG tomorrow as well. Discontinued Zofran. Leukopenia-white blood cell count has normalized. Recheck labs tomorrow. Anticipate discharge home tomorrow. There will be multiple family members present 09/23/2020 Portable oxygen is in the patient's room. She is currently stable on 4 L nasal cannula. Patient stable for discharged home. - Additional Information Resuscitation Status: Full Code Discharge Diet: As Tolerated Discharge Activity: Activity As Tolerated, Balance Activity w/Rest Referrals: JAIRO BROWN MD [NO LOCAL MD] - 10/23/20 11:00 am MONTSERRAT PRESTON MD [Primary Care Provider] - 09/30/20 9:45 am (The patient will see Dr. Preston esol teacher assistant.) Prescriptions: Prednisone [Deltasone 10 mg Tablet] See Protocol PO ASDIR PRN #21 tablet PRN Reason: Home Medications: Apixaban [Eliquis 5 mg Tablet] 5 mg PO BID 08/05/17 Hydroxychloroquine Sulfate [Plaquenil 200 mg Tablet] 200 mg PO BID 08/05/17 Methotrexate Sodium [Methotrexate] 2.5 mg PO ASDIR PRN 08/05/17 Amlodipine Besylate [Norvasc 5 mg Tablet] 5 mg PO DAILY 09/14/20 Dofetilide [Tikosyn] 250 mcg PO BID 09/14/20 Donepezil HCl [Aricept 5 mg Tablet] 5 mg PO DAILY 09/14/20 Prednisone [Deltasone 10 mg Tablet] See Protocol PO ASDIR PRN #21 tablet 09/18/20 History of Present Illiness History of Present Illness: SHIMON MURRAY is a 80 year old female, past medical history of rheumatoid arthritis, atrial fibrillation on Eliquis, hypertension, hypothyroidism, who was brought in by EMS due to generalized weakness, diarrhea, desaturation. Patient tested positive for COVID-19 in August 30, 2020 after her tested positive and because of it. She started exhibiting symptoms 3 days after with diarrhea, nausea vomiting, on and off fever. She had very minimal respiratory symptoms. She would have about more than 10 episodes of diarrhea per day. Today she felt very weak, and short of breath that is why EMS was called. Per EMS notes her saturation at home was 90% on room air when she ambulated. Patient denied any melena, or blood in her stool. Hospitalist service was called for further evaluation and management. In the emergency room blood pressure was 144/52, heart rate of 70, temperature 98.6, respiratory rate 20, O2 sat 100% on 2 L of nasal cannula. CBC showed leukopenia WBC count of 2.6, hemoglobin of 11.9, platelet count 170. CMP showed mild hyponatremia 133, potassium 3.9, creatinine 0.74, normal lactic acid, ferritin high at 373, CRP [address] showed lung infiltrates consistent with COVID-19 infection, 4 cm aneurysmal dilatation of the ascending aorta, nonobstructive nephrolithiasis, sigmoid diverticulosis without diverticulitis. Hospital Course Hospital Course: Patient was brought into the hospital for treatment of acute respiratory failure secondary to COVID-19 pneumonia. Patient received treatment with ivermectin x2 doses, Solu-Medrol, melatonin, zinc and vitamin supplements. Patient's hypoxia improved and she was able to be weaned down in terms of a nasal cannula. She is down to 2 L nasal cannula and has been maintaining adequate saturations for the past few days on 2 L. Her lingering hypoxia is likely from damage done from COVID-19 infection to her lungs. Today she was tested to see if she still needed oxygen and she desaturated to 82% on room air. When she was placed on nasal cannula her O2 sats were in the high 90s. She has been very stable for the past several days now so she is ready for discharge. We are setting her up with oxygen tank before she goes. While in the hospital, she did also notably have leukopenia which has resolved at this point. Oncologist evaluated and thinks that her leukopenia is likely secondary to her viral infection. She was also treated for diarrhea. Abdominal CT incidentally picked up on abdominal aortic aneurysm which was only 4 cm so does not require intervention. Patient stable and ready for discharge. Physical Exam Vital Signs: Temp Pulse Resp BP Pulse Ox 97.9 F 65 16 150/48 H 94 09/23/20 10:00 09/23/20 08:15 09/23/20 08:15 09/23/20 08:15 09/23/20 08:15 Intake & Output 09/22/20 09/23/20 09/24/20 06:59 06:59 06:59 Intake Total 1600 1247 Output Total 500 Balance 1100 1247 Weight 58.5 kg 60 kg General appearance: PRESENT: no acute distress, cooperative, well-developed Head exam: PRESENT: atraumatic, normocephalic Ear exam: PRESENT: normal external ear exam. ABSENT: bleeding, drainage Mouth exam: PRESENT: moist, tongue midline Respiratory exam: PRESENT: clear to auscultation patel, symmetrical, unlabored. ABSENT: rales, rhonchi, tachypnea, wheezes Cardiovascular exam: PRESENT: RRR, +S1, +S2. ABSENT: bradycardia, diastolic murmur, irregular rhythm, systolic murmur, tachycardia GI/Abdominal exam: PRESENT: normal bowel sounds, soft. ABSENT: tenderness Neurological exam: PRESENT: alert, awake, oriented to person, oriented to place, oriented to time, oriented to situation, CN II-XII grossly intact. ABSENT: altered Psychiatric exam: PRESENT: appropriate affect. ABSENT: agitated, anxious Focused psych exam: ABSENT: delusional, paranoid, restlessness Results Laboratory Results: WBC 5.6 10^3/uL (4.0-10.5) 09/23/20 04:52 RBC 3.73 10^6/uL (3.72-5.28) 09/23/20 04:52 Hgb 10.8 g/dL (12.0-15.5) L 09/23/20 04:52 Hct 32.6 % (36.0-47.0) L 09/23/20 04:52 MCV 87 fl (80-97) 09/23/20 04:52 MCH 28.9 pg (27.0-33.4) 09/23/20 04:52 MCHC 33.1 g/dL (32.0-36.0) 09/23/20 04:52 RDW 16.0 % (11.5-14.0) H 09/23/20 04:52 Plt Count 234 10^3/uL (150-450) 09/23/20 04:52 Lymph % (Auto) Not Reportable 09/23/20 04:52 [place] % (Auto) Not Reportable 09/23/20 04:52 Eos % (Auto) Not Reportable 09/23/20 04:52 Baso % (Auto) Not Reportable 09/23/20 04:52 Absolute Neuts (auto) Not Reportable 09/23/20 04:52 Absolute Lymphs (auto) Not Reportable 09/23/20 04:52 Absolute Monos (auto) Not Reportable 09/23/20 04:52 Absolute Eos (auto) Not Reportable 09/23/20 04:52 Absolute Basos (auto) Not Reportable 09/23/20 04:52 Total Counted 100 09/23/20 04:52 Seg Neutrophils % Not Reportable 09/23/20 04:52 Seg Neuts % (Manual) 82 % (42-78) H 09/23/20 04:52 Band Neutrophils % 2 % (3-5) L 09/23/20 04:52 Lymphocytes % (Manual) 3 % (13-45) L 09/23/20 04:52 Atypical Lymphs % 1 % (0) 09/16/20 05:59 Monocytes % (Manual) 13 % (3-13) 09/23/20 04:52 Eosinophils % (Manual) 0 % (0-6) 09/23/20 04:52 Basophils % (Manual) 0 % (0-2) 09/23/20 04:52 Metamyelocytes % 1 % (0-1) 09/13/20 12:55 Abs Neuts (Manual) 4.7 10^3/uL (1.7-8.2) 09/23/20 04:52 Abs Lymphs (Manual) 0.2 10^3/uL (0.5-4.7) L 09/23/20 04:52 Abs Monocytes (Manual) 0.7 10^3/uL (0.1-1.4) 09/23/20 04:52 Absolute Eos (Manual) 0.0 10^3/uL (0.0-0.6) 09/23/20 04:52 Abs Basophils (Manual) 0.0 10^3/uL (0.0-0.2) 09/23/20 04:52 Toxic Granulation SLIGHT 09/14/20 05:43 Clumped Platelets PRESENT 09/16/20 05:59 Platelet Comment ADEQUATE 09/23/20 04:52 Poikilocytosis 2+ 09/16/20 05:59 Anisocytosis 1+ 09/23/20 04:52 Tear Drop Cells 1+ 09/14/20 05:43 Ovalocytes 2+ 09/16/20 05:59 Star Cells 2+ 09/16/20 05:59 PT 13.5 SEC (11.4-15.4) 09/13/20 12:55 INR 1.01 09/13/20 12:55 D-Dimer 1.06 ug/mL (0.00-0.50) H 09/13/20 12:55 Carbonic Acid 0.99 mmol/L (1.05-1.35) L 09/20/20 11:45 HCO3/H2CO3 Ratio 29:1 09/20/20 11:45 ABG pH 7.56 (7.35-7.45) H 09/20/20 11:45 ABG pCO2 32.8 mmHg (35-45) L 09/20/20 11:45 ABG pO2 39.7 mmHg (80-100) L* 09/20/20 11:45 ABG HCO3 29.0 mmol/L (20-24) H 09/20/20 11:45 ABG Total CO2 30.0 mmol/L (21-25) H 09/20/20 11:45 ABG O2 Saturation 82.6 % (94-98) L 09/20/20 11:45 ABG Base Excess 6.9 mmol/L 09/20/20 11:45 VBG pH 7.37 (7.30-7.42) 09/13/20 12:55 VBG pCO2 36.6 mmHg (35-63) 09/13/20 12:55 VBG HCO3 20.5 mmol/L (20-32) 09/13/20 12:55 VBG Base Excess -4.2 mmol/L 09/13/20 12:55 FiO2 2L 09/20/20 11:45 Sodium 132.7 mmol/L (137-145) L 09/23/20 04:52 Potassium 4.9 mmol/L (3.6-5.0) 09/23/20 04:52 Chloride 99 mmol/L (98-107) 09/23/20 04:52 Carbon Dioxide 28 mmol/L (22-30) 09/23/20 04:52 Anion Gap 6 (5-19) 09/23/20 04:52 BUN 41 mg/dL (7-20) H 09/23/20 04:52 Creatinine 0.65 mg/dL (0.52-1.25) 09/23/20 04:52 Est GFR ( Amer) > 60 (>60) 09/23/20 04:52 Est GFR (MDRD) Non-Af > 60 (>60) 09/23/20 04:52 Glucose 252 mg/dL (75-110) H 09/23/20 04:52 POC Glucose 134 mg/dL (70-110) H 09/13/20 14:18 Lactic Acid 0.9 mmol/L (0.7-2.1) 09/13/20 20:00 Calcium 9.1 mg/dL (8.4-10.2) 09/23/20 04:52 Ferritin 607.00 ng/mL (11.1-264.0) H 09/21/20 04:44 Total Bilirubin 0.8 mg/dL (0.2-1.3) 09/23/20 04:52 Direct Bilirubin 0.3 mg/dL (0.0-0.4) 09/23/20 04:52 Neonat Total Bilirubin Not Reportable 09/23/20 04:52 Neonat Direct Bilirubin Not Reportable 09/23/20 04:52 Neonat Indirect Bili Not Reportable 09/23/20 04:52 AST 29 U/L (14-36) 09/23/20 04:52 ALT 28 U/L (<35) 09/23/20 04:52 Alkaline Phosphatase 69 U/L (38-126) 09/23/20 04:52 Lactate Dehydrogenase 349 U/L (120-246) H 09/13/20 20:00 Troponin I 0.015 ng/mL 09/14/20 05:43 C-Reactive Protein 127.5 mg/L (<10.0) H 09/21/20 04:44 NT-Pro-B Natriuret Pep 887 pg/mL (<450) H 09/13/20 12:55 Total Protein 4.5 g/dL (6.3-8.2) L 09/23/20 04:52 Albumin 2.4 g/dL (3.5-5.0) L 09/23/20 04:52 Lipase 37.2 U/L (23-300) 09/13/20 12:55 Urine Color YELLOW 09/14/20 11:35 Urine Appearance CLOUDY 09/14/20 11:35 Urine pH 6.0 (5.0-9.0) 09/14/20 11:35 Ur Specific [place] 1.019 09/14/20 11:35 Urine Protein 100 mg/dL (NEGATIVE) H 09/14/20 11:35 Urine Glucose (UA) NEGATIVE mg/dL (NEGATIVE) 09/14/20 11:35 Urine Ketones TRACE mg/dL (NEGATIVE) H 09/14/20 11:35 Urine Blood NEGATIVE (NEGATIVE) 09/14/20 11:35 Urine Nitrite NEGATIVE (NEGATIVE) 09/14/20 11:35 Urine Bilirubin NEGATIVE (NEGATIVE) 09/14/20 11:35 Urine Urobilinogen NEGATIVE mg/dL (<2.0) 09/14/20 11:35 Ur Leukocyte Esterase NEGATIVE (NEGATIVE) 09/14/20 11:35 Urine WBC (Auto) 4 /HPF 09/14/20 11:35 Urine RBC (Auto) 14 /HPF 09/14/20 11:35 Urine Bacteria (Auto) TRACE /HPF 09/14/20 11:35 Squamous Epi Cells Auto 23 /HPF 09/14/20 11:35 Urine Mucus (Auto) FEW /LPF 09/14/20 11:35 Urine Ascorbic Acid 40 (NEGATIVE) H 09/14/20 11:35 POC Stool Occult Blood POSITIVE (NEGATIVE) 09/13/20 13:21 Influenza A (Rapid) NEGATIVE (NEGATIVE) 09/13/20 16:00 Influenza B (Rapid) NEGATIVE (NEGATIVE) 09/13/20 16:00 Group A Strep Rapid NEGATIVE (NEGATIVE) 09/13/20 16:00 Slides for Path Review PATHOLOGIST REVIEWED 09/14/20 05:43 Blood Type A NEGATIVE 09/13/20 13:16 Antibody Screen NEGATIVE 09/13/20 13:16 09/13/20 09/13/20 09/13/20 12:55 12:55 20:00 Troponin I 0.027 0.035 NT-Pro-B Natriuret Pep 887 H 09/14/20 05:43 Troponin I 0.015 NT-Pro-B Natriuret Pep Impressions: Chest CT 09/13/20 13:31 IMPRESSION: 1. Lung infiltrates are consistent with the clinical history of COVID19 infection. 2. Aneurysmal dilatation ascending aorta. 3. Nonobstructive nephrolithiasis. 4. Sigmoid diverticulosis without suggestion of active diverticulitis. Abdomen/Pelvis CT 09/13/20 13:35 IMPRESSION: 1. Lung infiltrates are consistent with the clinical history of COVID19 infection. 2. Aneurysmal dilatation ascending aorta. 3. Nonobstructive nephrolithiasis. 4. Sigmoid diverticulosis without suggestion of active diverticulitis. Chest X-Ray 09/21/20 00:00 IMPRESSION: Increased bilateral (left greater than right) patchy parenchymal opacities in a peripheral distribution. Plan Health Concerns: Covid pneumonia in elderly patient with multiple comorbidities Plan of Treatment: Continue medications as instructed. Continue to attempt to wean oxygen however I told the patient it is unclear at this time if she will ever get back to room air. Goals: Resolution of Covid pneumonia Time Spent: Greater than 30 Minutes Stroke Is this a Stroke Patient?: No Acute Heart Failure Is this a Heart Failure Patient?: No
[2020-09-23 13:52] VITALS: BP 137/59
[2020-09-23] MEDS: AMLODIPINE BESYLATE 10 MG TABLET PO SCH (14:57)
== END 2020-09-23 16:19 | disposition home health service (06) | DRG 177 ==
LOC: ER 12:32 → EH 16:40 → 3W 18:52
PROVIDERS: ADMIT Internal Medicine; ATTEND Hospitalist
DX: U07.1 COVID-19 (principal); J12.89 Other viral pneumonia; J96.01 Acute respiratory failure with hypoxia; I48.20 Chronic atrial fibrillation, unspecified; E87.1 Hypo-osmolality and hyponatremia; D70.3 Neutropenia due to infection; I71.2 Thoracic aortic aneurysm, without rupture; I10 Essential (primary) hypertension; E03.9 Hypothyroidism, unspecified; M06.9 Rheumatoid arthritis, unspecified; N20.0 Calculus of kidney; K57.30 Diverticulosis of large intestine without perforation or abscess without bleeding; E78.5 Hyperlipidemia, unspecified; K21.9 Gastro-esophageal reflux disease without esophagitis; R19.7 Diarrhea, unspecified; F32.9 Major depressive disorder, single episode, unspecified; Z79.899 Other long term (current) drug therapy; Z79.01 Long term (current) use of anticoagulants; Z88.0 Allergy status to penicillin; Z88.8 Allergy status to other drugs, medicaments and biological substances; Z88.6 Allergy status to analgesic agent; Z91.041 Radiographic dye allergy status
CPT/HCPCS: 36415; 71045; 71046; 71250; 74176; 80048; 80053; 81001; 82270; 82728; 82803; 82962; 83605; 83615; 83690; 83880; 84484; 85025; 85027; 85379; 85610; 86140; 86850; 86900; 86901; 87040; 87070; 87077; 87150; 87186; 87804; 87880; 93005; 93010; 96361; 96365; 96367; 96375; 99285; C9113; J0131; J0456; J1200; J2185; J2920; J2930; J3490; J7030; J7040; J7120; J7512; S0028